=== PATIENT | female | born 1965 | race Caucasian/White ===

== ENCOUNTER → 2016-05-12 | Outpatient (CLI) | payer OTHER | END | disposition home or self-care (01) | LOC: YCFC.O 10:06 | PROVIDERS: ATTEND Nurse Practitioner Family | DX: R25.2 Cramp and spasm (principal); R60.9 Edema, unspecified ==

== ENCOUNTER 2016-05-15 16:24 | Inpatient (IN) | payer OTHER ==
[2016-05-15] MEDS ORDERED: MORPHINE SULFATE INJ 10 MG/ML VIAL IV ONE (16:39)
[2016-05-15] MEDS ORDERED: SODIUM CHLORIDE 0.9% (FLUSH) 10 ML SYG IV PRN (16:39)
[2016-05-15] MEDS ORDERED: methylPREDNISolone SODIUM SUC 125 MG/2 ML VIAL IV ONE (16:43)
[2016-05-15] MEDS ORDERED: MAGNESIUM SULFATE PREMIX 2GM 2 GM in PREMIX BAG 1 BAG IVPB ONE (16:43)
[2016-05-15] MEDS ORDERED: MAGNESIUM SULFATE PREMIX 2GM 50 ML IVPB ONE (16:56)
[2016-05-15] MEDS ORDERED: ALBUTEROL SULFATE 2.5 MG/3 ML VIAL NEB SCH (17:15)
--- NOTE | 2016-05-15 18:13 | ED.PDOC ---
History of Present Illness - General Chief Complaint: Respiratory Problem Stated Complaint: shortness of breath Time Seen by Provider: 05/15/16 16:39 Source: patient, family, RN/MD Exam Limitations: no limitations - History of Present Illness Initial Comments: 50 YO FEMALE WITH COPD PRESENTS TO THE ED COMPLAINING OF SOB SINCE LAST NIGHT. PT WAS SEEN BY HER PMD TODAY AND STARTED ON LEVAQUIN AND PREDNISONE. PT HAD NOT YET TAKEN HER FIRST DOSE OF MEDS UPON PRESENTATION. PT REPORTS PERFORMING 4 DUONEBS SINCE THIS AM. PT FOUND HER SPO2 TO BE IN THE 70S AT HOME AND WAS TOLD BY HER PCP TO COME TO THE ED. PT REQUIRES MY IMMEDIATE ATTENTION UPON ARRIVAL. Timing/Duration: 24 hours Severity: moderate, severe Activities at Onset: none Possible Cause: chronic episodes Improving Factors: immobilization Worsening Factors: movement Associated Symptoms: chest pain, wheezing, other - HEADACHE, BACK PAIN Allergies/Adverse Reactions: Allergies Hydrocodone Adverse Reaction (Verified 10/30/15 11:15) Home Medications: Ambulatory Orders Ipratropium/Albuterol [Duoneb] 3 ml INH TID #30 vial 11/06/15 Losartan Potassium [Cozaar] 100 mg PO DAILY #30 tab 11/06/15 Fluticasone Propionate Hfa [Flovent Hfa] 110 mcg IN BID 05/15/16 Furosemide [Lasix] 80 mg PO DAILY 05/15/16 Potassium Chloride Microencaps [Klor-Con M20] 20 meq PO BID 05/15/16 Spironolactone 25 mg PO DAILY 05/15/16 Review of Systems - Review of Systems Constitutional: Denies: chills, fever EENTM: Denies: ear pain, throat pain Respiratory: States: see HPI, short of breath, wheezing Cardiology: States: see HPI, chest pain. Denies: palpitations Gastrointestinal/Abdominal: Denies: abdominal pain, diarrhea, nausea Genitourinary: Denies: dysuria, frequency Musculoskeletal: Denies: joint pain, joint swelling Skin: Denies: lesions, rash Neurological: States: headache. Denies: numbness, paresthesia Endocrine: States: no symptoms reported Hematologic/Lymphatic: States: no symptoms reported Past Medical History (General) - Patient Medical History Hx Stroke: No Hx of COPD: Yes Hx Congestive Heart Failure: No - patient denies Hx Hypertension: Yes Hx Diabetes: No Hx MRSA: No - Vaccination History Hx Tetanus, Diphtheria Vaccination: No Hx Influenza Vaccination: No Hx Pneumococcal Vaccination: No - Social History Hx Tobacco Use: No Hx Alcohol Use: Yes - Female History Patient : No Family Medical History - Family History Mother Family History: No Known Physical Exam - Physical Exam General Appearance: Alert, Obvious distress, Obese Eyes, Ears, Nose, Throat Exam: normal ENT inspection Neck: non-tender, full range of motion Respiratory: respiratory distress - UNABLE TO SPEAK IN FULL SENTENCES, wheezing Cardiovascular/Chest: no murmur, tachycardia Gastrointestinal/Abdominal: non tender, soft Extremity: pedal edema - 2+ BILATERAL LE Neurologic: alert, normal mood/affect, oriented x 3 Skin Exam: normal color, warm/dry Progress - Progress Progress: 05/15/16 18:27 PT RESTING COMFORTABLY ON RE-EVAL. PT MUCH LESS TACHYPNEIC WITH SIGNIFICANT IMPROVEMENT IN WHEEZING. SPO2 [address] PT ON VENTI MASK AND TITRATE SPO2 ABOVE 90. - EKG/XRAY/CT EKG: Sinus, Tachy - 107BPM, NL INTERVALS, RAD, no ST T wave changes, Unchanged from - 10/31/15 Xray Comments: CXR: NEGATIVE PER RAD Departure - Departure Clinical Impression: COPD (chronic obstructive pulmonary disease) with acute bronchitis, Hypoxemia Rhabdomyolysis Qualifiers: Rhabdomyolysis type: non-traumatic Qualifier Code: (M62.82) Rhabdomyolysis Time of Disposition: 18:37 Disposition: Admit Patient Condition: Fair Departure Forms: ED Discharge - Pt. Copy, Patient Portal Self Enrollment Home Medications: Ambulatory Orders Ipratropium/Albuterol [Duoneb] 3 ml INH TID #30 vial 11/06/15 Losartan Potassium [Cozaar] 100 mg PO DAILY #30 tab 11/06/15 Fluticasone Propionate Hfa [Flovent Hfa] 110 mcg IN BID 05/15/16 Furosemide [Lasix] 80 mg PO DAILY 05/15/16 Potassium Chloride Microencaps [Klor-Con M20] 20 meq PO BID 05/15/16 Spironolactone 25 mg PO DAILY 05/15/16 Critical Care Note - Critical Care Note Total Time (mins): 45 Comments: CRITICAL EVENT: SOB, HYPOXIA, H/O COPD CRITICAL FINDINGS: SPO2 78% ON RA, CK >7000, CK-MB 5.8 CRITICAL ACTIONS: INITIATION OF CONTINUOUS 5MG ALBUTEROL NEB, IV SOLU MEDROL, IV MAGNESIUM SULFATE TOTAL TIME: 30-74MIN. Decision To Admit - Decistion To Admit Decision to Admit Reason: Admit from ER Decision to Admit Date: 05/15/16 - CASE DISCUSSED WITH JORDAN BARKSDALE NP WHO AGREES TO ADMIT Decision to Admit Time: 18:35
[2016-05-15] MEDS ORDERED: levoFLOXacin 750MG IV 750 MG in PREMIX BAG 1 BAG IVPB ONE (18:38)
[2016-05-15] MEDS ORDERED: ALBUTEROL SULFATE 2.5 MG/3 ML VIAL NEB ONE (19:49)
--- NOTE | 2016-05-15 21:30 | HP ---
SUPERVISING PHYSICIAN: DANAE PHAM MD CHIEF COMPLAINT: SHORTNESS OF BREATH HISTORY OF PRESENT ILLNESS: This is a 50 year-old female patient who has had shortness of breath since Thursday. She went to [facility] and saw Christy Hollis, her Nurse Practitioner, for her shortness of breath and she received Levaquin and steroids as well as a rescue inhaler and another inhaler, she was unable to pick those medications up and over the last 24 hours she progressively worsened to the point that she did not get up and go to the bathroom without shortness of breath. Her oxygen saturations at home were in the low 70s. At home, she had done 4 DuoNebs and finally came to the Emergency Room. Her 02 saturations in the Emergency Room were also in the 70s. She received some steroids in the Emergency Room as well as a continuous nebulizer. Her chest x-ray was not done but her lab showed WBC 8.7, hemoglobin 12.5, hematocrit 39, neutrophils 79.1. Chemistries showed an AST of 116, alkaline phosphatase 135, creatinine kinase 7,128. CK 5.8. Blood gas showed a PC02 of 44, PO2 of 61. Her pH was 7.43. After her breathing treatments and the Solu- Medrol as well as the addition of Levaquin, her oxygen saturations came up to the high 80s and I was called for hospital admission. PAST MEDICAL HISTORY: 1. Hypertension. 2. Chronic obstructive pulmonary disease. 3. Hyperlipidemia. 4. Sleep apnea. 5. Insomnia. PAST SURGICAL HISTORY: 1. Tubal ligation. SOCIAL HISTORY: She quit smoking in October of 2015, although she still smokes 1 to 2 cigarettes weekly but she is exposed to a lot of second-hand smoke by a lot of members of her family. She denies any ETOH or illicit drug use. She is and has 2 children. She works here at the hospital. REVIEW OF SYSTEMS: GENERAL: She complains of fatigue, denies fever or chills. HEENT: Denies sinus symptoms, ear pain, vision changes or sore throat. RESPIRATORY: As per the history of present illness. CARDIOVASCULAR: She denies chest pain, palpitations or tachycardia. GI: Denies nausea, vomiting, diarrhea or abdominal pain. GENITOURINARY: Denies dysuria, polyuria or hematuria. MUSCULOSKELETAL: Denies arthralgias or myalgias. She does complain of some mild back pain. NEUROLOGICAL: Denies headaches, seizures or dizziness. EXTREMITIES: She does complain of some mild swelling. PHYSICAL EXAMINATION: VITAL SIGNS: She is afebrile. Heart rate 89, although it was up to 112 in the Emergency Room. Blood pressure 146/85, respiratory rate is now 22, it had gotten up as high as 24 in the Emergency Room. 02 saturation is now 94% on a Venturi mask. It was down as low as 78 in the Emergency Room. GENERAL: This is a 50 yo obese female who is lying in her hospital bed. At this time, she is in no acute distress. HEENT: Normocephalic and atraumatic. Pupils equal and reactive. Oropharynx is clear. Oral mucous membranes are moist. NECK: Supple without masses. No jugular venous distention. CHEST: Diffuse expiratory wheezes bilaterally, somewhat diminished at the bases. CARDIOVASCULAR: Regular rate and rhythm. ABDOMEN: Soft, rounded, non-tender. Bowel sounds are positive. EXTREMITIES: No cyanosis, clubbing, there is a trace of edema to bilateral lower extremities. Her pedal pulses are +1 bilaterally. NEUROLOGIC: She is awake, alert, and oriented x3. LAB AND FILMS: As per history of present illness. ASSESSMENT: 1. Exacerbation of chronic obstructive pulmonary disease in a former smoker. 2. Elevated CPK. 3. Hypertension. 4. Hyperlipidemia. 5. History of chronic tobacco abuse. 6. Sleep apnea. PLAN: We will admit the patient to the hospital. I will order an IV steroids , as well as start her on Levaquin. She also has p.r.n. and scheduled breathing treatments. Will encourage good bronchial hygiene. I will give her some fluids overnight. I am not sure why her CPK is so elevated but her kidney function is within normal limits so I will check her CPK in the morning. I encouraged her to completely stop smoking and she needs to get a plan in place to minimize her exposure to smoke. I will repeat her labs in the morning, chest x-ray in the morning. I have not put her on sliding scale insulin for now. I will see how her steroids affect her blood sugars. Other than that, we will continue present supportive care and followup as medically needed. Dr. Pham is the collaborating physician and available for consultation. [facility][id number] [facility]
[2016-05-15] MEDS ORDERED: ONDANSETRON INJ 4 MG/2 ML VIAL IV PRN (23:06)
--- NOTE | 2016-05-15 23:12 | PCM.CORE ---
Physician DVT/VTE - Prophylaxis Currently: Patient already on anticoagulation therapy - 5 or more Very High Risk Treatments: Early Ambulation *, Sequential Compression Device
[2016-05-15] MEDS ORDERED: ENOXAPARIN SODIUM 40 MG/0.4 ML SYG SUBCU SCH (23:30)
[2016-05-15] MEDS ORDERED: PANTOPRAZOLE SODIUM IV 40 MG VIAL IV SCH (23:30)
[2016-05-15] MEDS ORDERED: SODIUM CHLORIDE 0.9% 10 ML VIAL ONE (23:40)
[2016-05-15] MEDS: SODIUM CHLORIDE 0.9% 1000ML 1,000 ML IVS PRN (23:52)
[2016-05-15] MEDS: IV SET AND CAP CHANGE INJ INJ SCH (23:58)
[2016-05-15] MEDS: methylPREDNISolone SODIUM SUC 125 MG/2 ML VIAL IV SCH (23:58)
[2016-05-16] MEDS ORDERED: ALBUTEROL SULFATE 2.5 MG/3 ML VIAL NEB PRN (01:20)
[2016-05-16] MEDS: IPRATROPIUM/ALBUTEROL 3 ML VIAL NEB SCH ×5 (04:00→20:25)
[2016-05-16] MEDS: IBUPROFEN 400 MG TAB PO PRN ×2 (04:33→12:48)
--- NOTE | 2016-05-16 06:37 | RAD ---
EXAM: Two view chest. INDICATION: Chest pain. COMPARISON: Chest x-ray: None. FINDINGS: Cardiac silhouette: Unremarkable. Alesha: Unremarkable. Lobar consolidation: None. Pleural effusion: None. Pneumothorax: None. Other: None. Bones: Unremarkable. Other: None. IMPRESSION: 1. No acute cardiopulmonary process. Electronically signed by: Phil Johnson MD 05/16/2016 6:34 AM COMPUTER SCIENCE TEACHER
[2016-05-16] MEDS: methylPREDNISolone SODIUM SUC 125 MG/2 ML VIAL IV SCH ×2 (08:43→16:23)
[2016-05-16] MEDS ORDERED: SODIUM CHLORIDE 0.9% 10 ML VIAL IV PRN (09:26)
[2016-05-16] MEDS ORDERED: DEXTROSE 50% 25 GM/50 ML SYG IV PRN (09:45)
[2016-05-16] MEDS ORDERED: GLUCAGON INJ 1 MG VIAL SUBCU PRN (09:45)
[2016-05-16] MEDS: SODIUM CHLORIDE 0.9% 1000ML 1,000 ML IVS PRN (10:06)
[2016-05-16] MEDS: INSULIN LISPRO 100 UNITS/ML PEN SUBCU SCH ×3 (12:20→21:30)
[2016-05-16] MEDS ORDERED: SODIUM BICARBONATE 10MEQ/10ML 75 MEQ in DEXTROSE 5% 1000ML 1,000 ML IV PRN (13:46)
[2016-05-16] MEDS: FUROSEMIDE 40 MG TAB PO SCH (14:42)
[2016-05-16] MEDS: SPIRONOLACTONE 25 MG TAB PO SCH (14:42)
[2016-05-16] MEDS: LOSARTAN POTASSIUM 100 MG TAB PO SCH (14:42)
[2016-05-16] MEDS ORDERED: HYDROcodone 5MG/APAP 325MG 1 EA TAB PO PRN (14:57)
[2016-05-16] MEDS ORDERED: NAPROXEN SODIUM 220 MG TAB PO PRN (17:25)
[2016-05-16] MEDS ORDERED: levoFLOXacin 500MG IV 100 ML IVPB ONE (17:28)
[2016-05-16] MEDS: POTASSIUM CHLORIDE 20 MEQ TAB PO SCH (17:34)
[2016-05-16] MEDS ORDERED: DEXTROSE 5% 1000ML 1,000 ML IVS ONE (17:39)
[2016-05-16] MEDS: levoFLOXacin 500MG IV 500 MG in PREMIX BAG 1 BAG IVPB SCH (17:39)
[2016-05-16] MEDS ORDERED: SODIUM BICARBONATE VIAL 50 MEQ/50 ML VIAL ONE ×2 (17:40→19:51)
--- NOTE | 2016-05-16 18:44 | PN ---
DATE: 05/16/16 SUPERVISING PHYSICIAN: Bryn Carrillo M.D. SUBJECTIVE: The patient is sitting up on the side of her bed. She still complains of shortness of breath but she said that it is much better than it was yesterday. She is still coughing occasionally but she can walk to the bathroom without help. She also complains of some back pain that she says is chronic in nature and Aleve helps her much better than Ibuprofen. Otherwise she denies any chest pain, nausea, vomiting or dizziness. OBJECTIVE: VITAL SIGNS: She is afebrile, heart rate 86, blood pressure 141/72, respiratory rate 22 to 24 breaths per minute, O2 sat has been as low as 88% on 2 liters nasal cannula, but at this moment it is at 94%. RESPIRATORY: Diminished sounds throughout. She does have some expiratory wheezes in the apices, but somewhat diminished at the bases. At times is slightly tachypneic. CARDIAC: Regular rate and rhythm. ABDOMEN: Soft, nondistended, non-tender. Bowel sounds are positive. EXTREMITIES: No cyanosis or clubbing. She does have a trace of pedal edema. NEUROLOGIC: She is awake, alert and oriented times three. LABORATORY: WBCs are 8.1, hemoglobin 12.2, hematocrit 38.4, neutrophils 92.8. Sodium 141, potassium 4.7, chloride 104, carbon dioxide 31, BUN 11, creatinine 0.65, glucose 244. AST is down to 92 from 116 yesterday and alkaline phosphatase is down to 124 from 135 yesterday. CPK was 7,128 yesterday and it is down 5,054 today. All other labs and films have been reviewed via the EMR. ASSESSMENT: 1. Acute exacerbation of chronic obstructive pulmonary disease in a former smoker with failed outpatient therapy. 2. Elevated CPK with concerns for developing Rhabdomyolysis, although her CPK has improved overnight. 3. Tachypnea most likely related to number 1. 4. Hypoxia. 5. Hypertension. 6. Hyperlipidemia currently not being treated. 7. History of chronic tobacco abuse. 8. Sleep apnea. PLAN: We will continue present supportive care. I will change her IV fluids to some Dextrose with bicarbonate. Hopefully her CPK levels will continue to drop. We will need to watch her renal function as we have concerns for Rhabdomyolysis with such a high CPK. I have changed her NSAID to Naprosyn and discontinued her Ibuprofen. I have also added some Tramadol to help with her pain relief. We will continue to encourage good pulmonary toilet and incentive spirometry. I will keep her steroids at the dosing that they are today and I will decrease them in the morning. She still has quite a bit of wheezing as well as low oxygenation. I have added sliding scale insulin for her elevated blood sugars. We will continue to monitor the patient closely and follow as needed. Dr. Carrillo is the collaborating physician available for consultation. #[id number] [facility]
[2016-05-16] MEDS: traMADol HCL 50 MG TAB PO PRN (20:30)
[2016-05-16] MEDS: PANTOPRAZOLE SODIUM IV 40 MG VIAL IV SCH (20:53)
[2016-05-16] MEDS: ENOXAPARIN SODIUM 40 MG/0.4 ML SYG SUBCU SCH (20:54)
[2016-05-17] MEDS: SODIUM CHLORIDE 0.9% (FLUSH) 10 ML SYG IV PRN ×3 (00:01→21:10)
[2016-05-17] MEDS: IPRATROPIUM/ALBUTEROL 3 ML VIAL NEB SCH ×6 (00:04→20:19)
[2016-05-17] MEDS: INSULIN LISPRO 100 UNITS/ML PEN SUBCU SCH ×4 (07:57→21:08)
[2016-05-17] MEDS: POTASSIUM CHLORIDE 20 MEQ TAB PO SCH ×2 (07:58→16:39)
[2016-05-17] MEDS: methylPREDNISolone SODIUM SUC 125 MG/2 ML VIAL IV SCH ×2 (07:58)
[2016-05-17] MEDS: SPIRONOLACTONE 25 MG TAB PO SCH (08:16)
[2016-05-17] MEDS: FUROSEMIDE 40 MG TAB PO SCH (08:16)
[2016-05-17] MEDS: LOSARTAN POTASSIUM 100 MG TAB PO SCH (08:16)
[2016-05-17] MEDS ORDERED: SODIUM BICARBONATE VIAL 50 MEQ/50 ML VIAL ONE (09:18)
[2016-05-17] MEDS ORDERED: DEXTROSE 5% 1000ML 1,000 ML IVS ONE (09:18)
[2016-05-17] MEDS ORDERED: SODIUM BICARBONATE VIAL 75 MEQ in DEXTROSE 5% 1000ML 1,000 ML IV PRN (09:24)
[2016-05-17] MEDS: methylPREDNISolone SODIUM SUC 40 MG/ML VIAL IV SCH ×2 (12:17→17:36)
--- NOTE | 2016-05-17 13:09 | PN ---
DATE: 05/17/16 SUPERVISING PHYSICIAN: Bryn Carrillo M.D. SUBJECTIVE: The patient is lying in her hospital bed. She is resting. She awakens easily. She states she still gets short of breath especially when she gets up to the bathroom, but she says she is improving each day. OBJECTIVE: VITAL SIGNS: She is afebrile, pulse rate 87, blood pressure 126/70, respiratory rate 20, O2 sat 94% on 4 liters nasal cannula. RESPIRATORY: Expiratory wheezes noted throughout all lung rooney. She is moving more air than she did yesterday. There are a few scattered rhonchi throughout also. CARDIAC: Regular rate and rhythm. NEUROLOGIC: She is awake, alert and oriented times three. LABORATORY: WBCs have slightly elevated to 12.3, although she is on corticosteroids. Hemoglobin 11.5, hematocrit 36, neutrophils 90. Sodium 142, potassium 4.5, chloride 101, carbon dioxide 43, BUN 18, creatinine 0.85, glucose 190. CPK 2,362 which is down from 5,054 yesterday. All other labs and films have been reviewed via the EMR. ASSESSMENT: 1. Acute exacerbation of chronic obstructive pulmonary disease in a former smoker with failed outpatient therapy. 2. Elevated CPK with concerns for developing Rhabdomyolysis, although her CPK has improved daily and is now down to 2300. 3. Tachypnea most likely related to number 1. 4. Hypoxia. 5. Hypertension. 6. Hyperlipidemia currently not being treated. 7. History of chronic tobacco abuse. 8. Sleep apnea. PLAN: We will continue present supportive care, including good pulmonary hygiene. I will order an ambulatory study today and tomorrow to determine if she should go home with oxygen. She does not have oxygen at home. I have decreased her IV steroids today and will start her on p.o. steroids in the morning. I have also done routine lab, including a CPK in the morning. After this bag of IV fluids with sodium bicarbonate, they will be discontinued as I believe that the possibility of her developing Rhabdomyolysis is very small at this point, especially given the fact that her renal function has remained within normal limits and her CPK has improved daily. Hopefully she can go home tomorrow with a steroid taper and continued good pulmonary hygiene. We will continue to monitor her closely and followup as needed. Dr. Carrillo is the collaborating physician available for consultation. #[id number] [facility]
[2016-05-17] MEDS ORDERED: levoFLOXacin 500MG IV 100 ML IVPB ONE (16:29)
[2016-05-17] MEDS: levoFLOXacin 500MG IV 500 MG in PREMIX BAG 1 BAG IVPB SCH (17:48)
[2016-05-17] MEDS: ENOXAPARIN SODIUM 40 MG/0.4 ML SYG SUBCU SCH (21:09)
[2016-05-17] MEDS: PANTOPRAZOLE SODIUM IV 40 MG VIAL IV SCH (21:09)
[2016-05-17] MEDS: traMADol HCL 50 MG TAB PO PRN (21:26)
[2016-05-18] MEDS: methylPREDNISolone SODIUM SUC 40 MG/ML VIAL IV SCH (00:11)
[2016-05-18] MEDS: SODIUM CHLORIDE 0.9% (FLUSH) 10 ML SYG IV PRN ×2 (00:12→17:37)
[2016-05-18] MEDS: IPRATROPIUM/ALBUTEROL 3 ML VIAL NEB SCH ×6 (00:12→19:49)
[2016-05-18] MEDS: INSULIN LISPRO 100 UNITS/ML PEN SUBCU SCH ×4 (07:21→21:30)
[2016-05-18] MEDS: POTASSIUM CHLORIDE 20 MEQ TAB PO SCH ×2 (07:22→16:45)
[2016-05-18] MEDS: SPIRONOLACTONE 25 MG TAB PO SCH (08:49)
[2016-05-18] MEDS: FUROSEMIDE 40 MG TAB PO SCH (08:49)
[2016-05-18] MEDS: LOSARTAN POTASSIUM 100 MG TAB PO SCH (08:49)
[2016-05-18] MEDS: predniSONE 20 MG TAB PO SCH (08:49)
[2016-05-18] MEDS ORDERED: MAGNESIUM SULFATE PREMIX 2GM 2 GM in PREMIX BAG 1 BAG IVPB ONE (11:30)
[2016-05-18] MEDS ORDERED: MAGNESIUM SULFATE PREMIX 2GM 50 ML IVPB ONE (11:38)
--- NOTE | 2016-05-18 11:58 | RAD ---
PROCEDURE: Chest,2 Views CLINICAL HISTORY: COPD INDICATION: Same as above COMPARISON: 05/16/2016 TECHNIQUE: PA and and lateral chest radiographs were obtained. FINDINGS: There is suggestion of probable left-sided pleural thickening, unchanged There are no discrete airspace infiltrates, pneumothoraces or pleural effusions. The pulmonary vascularity is normal The cardiomediastinal silhouette is stable IMPRESSION: There is no acute pleural-parenchymal process seen in the imaged lung rooney. Place of interpretation: Teleradiology. Electronically signed by: Jaleel Briseno MD 05/18/2016 11:57 AM CDT
--- NOTE | 2016-05-18 14:30 | PN ---
DATE: 05/18/16 SUPERVISING PHYSICIAN: Bryn Carrillo M.D. SUBJECTIVE: The patient is sitting on the edge of the bed. She appears to be a little distressed from just having previously done an ambulatory study which indicated she desatted to 86% on room air during ambulation with significant shortness of breath. The plan was to discharge the patient home today, however the patient appears to be again in mild distress with some significant respirations and obvious difficulty with inspiratory effort. She is able to speak in full sentences but gets significantly dyspneic with any exertional effort. OBJECTIVE: VITAL SIGNS: T max 98.4, pulse 81, blood pressure 118/77, respirations 20, O2 sat showing 93% on nasal cannula at 3 liters at rest with O2 saturations during ambulation studies on room air at 92% desatting to 86%. I 's and O's show a negative balance of 1047 with 3053 in, 4100 out. Weight is 114.3 kg. GENERAL: The patient appears to be in mild distress after having finished ambulatory study. Unable to fully lie down requiring her to sit on the edge of the bed to recover. Still continues with some mild expiratory wheezing throughout and a notable decrease in aeration of all lung rooney. HEART: Regular rate and rhythm. EXTREMITIES: No clubbing, cyanosis or edema. NEUROLOGIC: She is alert and oriented times three. LABORATORY: White count has now normalized at 10.6, hemoglobin 11.5, hematocrit 36.1, platelet count 282,000. Differential continues to show a left shift. Chemistries show normal electrolytes with potassium 4.5, BUN 22, creatinine 0.79, glucoses have been 167 to 250. CPK is now down to 654 from previous on 05/15/16 at 7,128. MICROBIOLOGY: There are no microbiology specimens for review. RADIOLOGY: A chest x-ray 2 view today per radiology interpretation shows no acute pleural parenchymal processes seen in the imaged lung rooney. ASSESSMENT: 1. Acute exacerbation of chronic obstructive pulmonary disease in a former smoker having failed outpatient therapy with a component of reactive airway disease, unknown triggers, requiring corticosteroids and aggressive pulmonary hygiene. 2. Elevated CPK with initially concerns for Rhabdomyolysis likely secondary to the patient being immobile for a length of time due to her shortness of breath with CPK now improved compared to admission of 2300 down to 654. 3. Tachypnea related to number 1 with minimum improvement today. 4. Hypoxia secondary to number 1. 5. Hypertension, controlled. 6. Hyperlipidemia currently not being treated. 7. History of chronic tobacco abuse. 8. Sleep apnea. PLAN: The patient today did show some mild deterioration with some respiratory distress after ambulatory studies. Discussed with the patient utilizing BiPAP today p.r.n. to assist with some ventilatory effort. Will continue with steroids p.o., prednisone and aggressive pulmonary hygiene. Anticipation of discharge tomorrow after continued treatment. Was hoped to be discharged today , however set back with her showing some significant respiratory distress at time of exam. The patient certainly would benefit from continued pulmonary hygiene and p.r.n. BiPAP. The patient likely need O2 at home. Will plan to do a further ambulatory study tomorrow to see if she has improved on room air. We discontinued her IV fluids that included sodium bicarbonate as her CPK is normalizing indicating less likely Rhabdomyolysis. Again, anticipate discharge tomorrow. She will need close clinical followup at [facility] as well as likely home O2, and she will need to go on a steroid tapering dose and continue antibiotics to completion to include Levaquin as well as continued pulmonary hygiene with Albuterol treatments. Until then, will continue to monitor the patient closely and treat appropriately. Dr. Carrillo is the collaborating physician available for consultation. #[id number] [facility]
[2016-05-18] MEDS ORDERED: levoFLOXacin 500MG IV 100 ML IVPB ONE (16:13)
[2016-05-18] MEDS: traMADol HCL 50 MG TAB PO PRN ×2 (16:46→23:08)
[2016-05-18] MEDS: levoFLOXacin 500MG IV 500 MG in PREMIX BAG 1 BAG IVPB SCH (17:36)
[2016-05-18] MEDS: PANTOPRAZOLE SODIUM IV 40 MG VIAL IV SCH (20:41)
[2016-05-18] MEDS: SODIUM CHLORIDE 0.9% (FLUSH) 10 ML SYG IV SCH (20:42)
[2016-05-18] MEDS: ENOXAPARIN SODIUM 40 MG/0.4 ML SYG SUBCU SCH (20:43)
[2016-05-19] MEDS: IV SET AND CAP CHANGE INJ INJ SCH
[2016-05-19] MEDS: IPRATROPIUM/ALBUTEROL 3 ML VIAL NEB SCH ×6 (01:08→21:26)
[2016-05-19] MEDS: INSULIN LISPRO 100 UNITS/ML PEN SUBCU SCH ×4 (07:24→21:27)
[2016-05-19] MEDS: POTASSIUM CHLORIDE 20 MEQ TAB PO SCH ×2 (07:25→16:43)
[2016-05-19] MEDS: SPIRONOLACTONE 25 MG TAB PO SCH (08:55)
[2016-05-19] MEDS: LOSARTAN POTASSIUM 100 MG TAB PO SCH (08:56)
[2016-05-19] MEDS: SODIUM CHLORIDE 0.9% (FLUSH) 10 ML SYG IV SCH ×2 (08:56→20:35)
[2016-05-19] MEDS: predniSONE 20 MG TAB PO SCH (08:56)
[2016-05-19] MEDS: FUROSEMIDE 40 MG TAB PO SCH (08:56)
[2016-05-19] MEDS: NYSTATIN SUSPENSION 5 ML UD MT SCH ×4 (10:02→21:28)
[2016-05-19] MEDS: methylPREDNISolone SODIUM SUC 125 MG/2 ML VIAL IV SCH ×3 (10:02→21:32)
--- NOTE | 2016-05-19 10:26 | RAD ---
Procedure: XR CHEST 2 VIEWS Exam date: 05/19/2016 9:46 AM CDT Ordering Provider: Bharath Cunha NP Clinical Indication: COPD exacerbation Comparison: May 18, 2016 Findings: Cardiomediastinal silhouette is within normal limits. The lungs are clear. No pleural effusion or pneumothorax. Osseous structures are nonacute. No evidence of active tuberculosis. Impression: No acute cardiopulmonary process. Stable chest. Electronically signed by: Grabiel Ramsay MD 05/19/2016 10:25 AM CDT
[2016-05-19] MEDS ORDERED: levoFLOXacin 500MG IV 100 ML IVPB ONE (12:55)
--- NOTE | 2016-05-19 15:09 | PN ---
SUPERVISING PHYSICIAN: Bryn Carrillo MD DATE: 05/19/16 SUBJECTIVE: The patient has been on the BiPAP through the night and said she rested well, but woke up this morning feeling worse than she has since she has been admitted with significant shortness of breath again. As noted, we did decrease her steroid regimen, which could be resulting in her acute setback. She does remain afebrile. The patient also complains of a sore throat that started this morning. OBJECTIVE: VITAL SIGNS: T-max 97.2. Pulse 87. Blood pressure 108/66. Respirations 20. 96% O2 saturation on nasal cannula at rest at 2 liters. I&Os show negative balance of 750 with 2140 in, 2900 out. GENERAL: The patient again appears to be in some mild distress off BiPAP. She continues with expiratory wheezing heard more prominently in the expiratory phase. HEENT: Oropharynx today is mildly erythematous with some whitish plaques to the tongue area. CHEST: Lung sounds are diminished towards the bases with expiratory wheezing throughout the lung rooney and some notable rhonchi heard in the bases, more prominent on the left than the right. HEART: Regular rate and rhythm. EXTREMITIES: No cyanosis, clubbing or edema. NEUROLOGIC: Alert and oriented times three. LABORATORY: White count remains within normal limits at 8.6, hemoglobin 12.0, hematocrit 37.8, platelet count 256,000, differential without a left shift. Chemistries show a normal potassium at 3.7, BUN 25, creatinine 0.76, carbon dioxide 36 which is increased from admission. CPK is down to 180, glucoses have been 81 to 250. MICROBIOLOGY: Group A Streptococcus culture is pending. RADIOLOGY: Repeat chest x-ray shows to be stable per radiology interpret with no acute cardiopulmonary processes noted. ASSESSMENT: 1. Acute exacerbation of chronic obstructive pulmonary disease in a former smoker having failed outpatient therapy with a component of reactive airway disease, currently unknown triggers, requiring increasing corticosteroids and continued aggressive pulmonary hygiene along with noninvasive ventilatory support with BiPAP p.r.n. 2. Elevated CPK with initially concerns for rhabdomyolysis, likely secondary to the patient being immobile for a length of time due to her severe shortness of breath with CPK now returning to normal limits. 3. Hypertension, controlled. 4. Hyperlipidemia currently not being treated. 5. History of chronic tobacco abuse. 6. Sleep apnea. PLAN: The patient today has shown continued decrease from previous days, although she did have some good sleep through the night with the BiPAP. This morning, she awoke wheezing, feeling tight. This possibly could be related to decrease in her steroids in the last 24 hours. Therefore, we will plan to increase the steroids back to Solu-Medrol IV with 80 mg q.6h. for four doses to reevaluate in the morning and monitor closely. She will continue with BiPAP as needed and aggressive pulmonary hygiene along with breathing treatments. We will continue to monitor ambulatory studies with anticipation of needing oxygen at time of discharge. She remains saline locked and has had a good urinary output. Once the patient is stabilized clinically and able to be discharged, she will need close clinical followup with [facility] as well as arrangements for O2 at home along with a slow tapered dose of steroids and ultimate completion of antibiotics to include Levaquin for 7 to 10 days. Until then, we will continue to monitor the patient closely and treat appropriately. Dr. Carrillo is the collaborating physician and available for consultation. #[id number] [facility]
[2016-05-19] MEDS: PANTOPRAZOLE SODIUM TAB 40 MG PO SCH (16:43)
[2016-05-19] MEDS: levoFLOXacin 500MG IV 500 MG in PREMIX BAG 1 BAG IVPB SCH (18:19)
[2016-05-19] MEDS: ENOXAPARIN SODIUM 40 MG/0.4 ML SYG SUBCU SCH (20:34)
[2016-05-19] MEDS: SODIUM CHLORIDE 0.9% (FLUSH) 10 ML SYG IV PRN (21:31)
[2016-05-20] MEDS: IPRATROPIUM/ALBUTEROL 3 ML VIAL NEB SCH ×3 (00:37→08:45)
[2016-05-20] MEDS: methylPREDNISolone SODIUM SUC 125 MG/2 ML VIAL IV SCH (04:08)
[2016-05-20] MEDS: SODIUM CHLORIDE 0.9% (FLUSH) 10 ML SYG IV PRN (04:09)
[2016-05-20] MEDS: PANTOPRAZOLE SODIUM TAB 40 MG PO SCH (06:21)
[2016-05-20] MEDS: INSULIN LISPRO 100 UNITS/ML PEN SUBCU SCH ×3 (07:43→17:17)
[2016-05-20] MEDS: POTASSIUM CHLORIDE 20 MEQ TAB PO SCH ×2 (07:44→17:17)
[2016-05-20] MEDS: NYSTATIN SUSPENSION 5 ML UD MT SCH ×3 (09:34→17:17)
[2016-05-20] MEDS: SPIRONOLACTONE 25 MG TAB PO SCH (09:34)
[2016-05-20] MEDS: FUROSEMIDE 40 MG TAB PO SCH (09:34)
[2016-05-20] MEDS: LOSARTAN POTASSIUM 100 MG TAB PO SCH (09:34)
[2016-05-20] MEDS: SODIUM CHLORIDE 0.9% (FLUSH) 10 ML SYG IV SCH (09:34)
[2016-05-20 10:08] VITALS: TEMP 98
[2016-05-20] MEDS ORDERED: BIFIDOBACTERIUM INFANTIS 4 MG CAP PO SCH (11:00)
[2016-05-20 14:23] VITALS: BP 125/81; O2SAT 92
--- NOTE | 2016-05-21 11:22 | DS ---
SUPERVISING PHYSICIAN: Bryn Carrillo MD DISCHARGE DIAGNOSIS: 1. Acute exacerbation of chronic obstructive pulmonary disease in a former smoker having failed to respond to outpatient therapy with a component of reactive airway disease, currently unknown triggers, requiring aggressive and increasing corticosteroid therapy with continued aggressive pulmonary hygiene along with noninvasive ventilatory support with BiPAP p.r.n., showing improvement after initiation of treatment. 2. Elevated CPK with concerns for rhabdomyolysis, likely secondary the patient being immobile for a length of time due to her severe shortness of breath with CPK returning to normal limits prior to discharge after treatment with alkalinization and IV fluids. 3. Thrush, secondary to antibiotic therapy. 4. Hypertension, controlled. 5. Hyperlipidemia currently not being treated. 6. History of chronic tobacco abuse, encouraged to stop smoking. 7. Sleep apnea. HISTORY OF PRESENT ILLNESS: Ms. Scherer is a 50-year-old, female patient who initially presented to the Emergency Department on 05/15/16 complaining of shortness of breath that had started the Thursday prior to admission. She went to [facility] and saw Amita Hollis, her nurse practitioner, for severe shortness of breath and received Levaquin, steroids, as well as a rescue inhaler and other inhalers, but was unable to pick the medications up in the 24 hours to her admission and she progressively worsened to the point where she could not get up and go the bathroom without severe shortness of breath. At home, her oxygen saturations were in the low 70s and she had been doing DuoNebs often and finally ended up coming to the Emergency Room due to the severe increasing symptoms. Her O2 saturations in the Emergency Department were showing low 70s. In the Emergency Room, she received steroids as well as continue nebulizer. Blood gas completed showed PCO2 44, PO2 61, pH 7.43. White count 8.7, hemoglobin 12.5, hematocrit 39.9. After breathing treatments were initiated and Solu-Medrol with Levaquin, her oxygen saturations increased to the high 80s and she was admitted to the Medical /Surgical Floor for further treatment and evaluation. LABORATORY: Initial white count was 8.7 at time of admission. It maximized at 12.3, which was on 05/17/16. Prior to discharge, she normalized to 8.6. Hemoglobin and hematocrit stayed stable and at time were hemoglobin 12.0, hematocrit 37.8. Platelet count 256,000. She did show a left shift on admission, but prior to discharge had normalized. Coagulation studies showed PT 13, INR 1.15, PT-T 35.9. Blood gases in the Emergency Department showed pH 7.43 with bicarb 28.3, PO2 61, PCO2 64, saturation 92% on 2 liter nasal cannula with oxyhemoglobin 87.5% and carboxyhemoglobin 5.0. Chemistries initially on admission showed normal electrolytes with liver functions initially showing elevated AST at 116 as well as alkaline phosphatase at 135. CPK 7,128 with troponin less than 0.02. After initiation of treatment, she clinically improved. Her CPK slowly normalized and at time of discharge was near normal at 180. Electrolytes on date of discharge showed normal electrolytes with potassium 4.2, BUN 25, creatinine 0.86. Glucoses were fairly elevated secondary to the corticosteroid therapy with a maximum of 275. Urinalysis was within normal limits. Toxicology screen showed urine positive for opioids, negative for other substances tested. MICROBIOLOGY: No sputum cultures were submitted. She had a group A Streptococcus culture that showed no group A strep isolated. RADIOLOGY: Chest x-ray initially on admission per radiology interpretation showed no acute cardiopulmonary processes. Through the admission process after multiple x-rays, her chest x-ray was stable with no infiltrations or consolidations noted per radiology interpretation. HOSPITAL COURSE: Ms. Scherer was admitted as noted in history of present illness for severe exacerbation of chronic obstructive pulmonary disease with hypoxia. She was started on treatment that included antibiotics with Levaquin, Solu- Medrol, and aggressive pulmonary hygiene with DuoNeb breathing treatments. She did progressively improve clinically, however, on initial date of discharge which was to be 05/18/16, the patient was found to have clinically decompensated and was requiring assistance with noninvasive ventilatory through BiPAP. It was noted that she had been on steroids, however, those had been tapered off in anticipation of the patient going home and started on prednisone the previous day. Given that she had an increasing work to breathe and a clinical decline, she was continued with admission and re-initiated on Solu- Medrol. This was continued continued until date of discharge and the patient showed good improvement. On the morning of discharge, she was clinically well enough to be discharged to continue with outpatient therapy. She did have ambulatory studies completed which showed low saturations and on date of discharge, final ambulatory study indicated that she was satting on room air 91 % prior to ambulatory efforts and de-satted down to 88% with 6 minute exertional effort. She was only able to walk 550 feet and became quite short of breath with heart rate going up into the 130s. She was able to recover to 91 % after four minutes with 1 liter nasal cannula. Given that the patient had shown improvement and was no longer requiring BiPAP, but was requiring home oxygen, home oxygen as arranged and she was discharged to have close clinical followup with her primary care providers at [facility]. PLAN: Ms. Scherer was discharged on 05/20/16 with instructions to have close clinical followup the following week with her primary care provider at [facility]. She has been seeing Amita Hollis, nurse practitioner. She will need a referral to pulmonology services and that can be arranged through [facility]. She was instructed to start new medications and to take previous home medications as previously instructed. She was to oxygen as prescribed until she could be seen in followup. She was also scheduled for a sleep study this coming Thursday after discharge to further assess need to BiPAP or CPAP at home. She was encouraged to increase her activity as tolerated utilizing oxygen and was encouraged to stop smoking and not to smoke ever with use of oxygen. She was instructed to return to the hospital should she have no improvement in her condition or any worsening. At time of discharge, new prescriptions included: 1. Align 4 mg daily, #30. 2. Levaquin 500 mg daily, #9. 3. Prednisone tapering dose after a 5 day 40 mg regimen with slow taper per instructions. 4. Protonix 40 mg daily, #30. 5. The patient will be continued on Nystatin swish and swallow for thrush. Ms. Scherer was discharged in stable condition #[id number] [facility]
== END 2016-05-20 18:00 | disposition home or self-care (01) | DRG 191 ==
LOC: ER 16:24 → MS 21:28 → OBSVTOIN 21:28
PROVIDERS: ADMIT Nurse Practitioner Acute Care; ATTEND Nurse Practitioner Family
DX: J44.1 Chronic obstructive pulmonary disease with (acute) exacerbation (principal); M62.82 Rhabdomyolysis; B37.0 Candidal stomatitis; Z68.42 Body mass index [BMI] 45.0-49.9, adult; J45.909 Unspecified asthma, uncomplicated; T36.95XA Adverse effect of unspecified systemic antibiotic, initial encounter; I10 Essential (primary) hypertension; E78.5 Hyperlipidemia, unspecified; G47.30 Sleep apnea, unspecified; R09.02 Hypoxemia; G47.00 Insomnia, unspecified; E66.9 Obesity, unspecified; G89.29 Other chronic pain; M54.9 Dorsalgia, unspecified; Y92.230 Patient room in hospital as the place of occurrence of the external cause; Z87.891 Personal history of nicotine dependence; Z88.5 Allergy status to narcotic agent; Z79.899 Other long term (current) drug therapy

== ENCOUNTER → 2016-05-15 | Outpatient (CLI) | payer OTHER ==
--- NOTE | 2016-05-15 11:04 | RAD ---
EXAM DESCRIPTION: Chest,2 Views CLINICAL HISTORY: COPD COMPARISON: November 04, 2015 FINDINGS: Two-view chest x-ray shows cardiomediastinal silhouette and pulmonary vasculature to be within normal limits. The lungs are mildly hyperinflated without acute appearing of the trachea or consolidation. Costophrenic angles are sharp. Mild spondylitic changes of the spine are seen. IMPRESSION: No radiographic evidence of acute cardiopulmonary disease. Electronically signed by: Miguel Coronel MD 05/15/2016 11:03 AM HEALTH CARE LEGAL ASSISTANT
== END | disposition home or self-care (01) ==
LOC: YCFC.O 09:10
PROVIDERS: ATTEND Nurse Practitioner Family
DX: J44.1 Chronic obstructive pulmonary disease with (acute) exacerbation (principal)

== ENCOUNTER → 2016-05-26 | Outpatient (CLI) | payer OTHER | LOC: SL 20:30 | PROVIDERS: ATTEND Nurse Practitioner Family | DX: G47.33 Obstructive sleep apnea (adult) (pediatric) (principal) ==

== ENCOUNTER → 2016-05-27 | Outpatient (CLI) | payer OTHER | END | disposition home or self-care (01) | LOC: YCFC.O 09:49 | PROVIDERS: ATTEND Nurse Practitioner Family | DX: I10 Essential (primary) hypertension (principal); Z13.220 Encounter for screening for lipoid disorders; Z13.29 Encounter for screening for other suspected endocrine disorder; J44.9 Chronic obstructive pulmonary disease, unspecified ==

== ENCOUNTER → 2016-05-28 | Outpatient (CLI) | payer OTHER ==
[~2016-05-28] MED LIST: ALBUTEROL SULFATE 2.5 MG/3 ML VIAL NEB ONE
== END | disposition home or self-care (01) ==
LOC: RESP 10:13
PROVIDERS: ATTEND Nurse Practitioner Family
DX: J44.9 Chronic obstructive pulmonary disease, unspecified (principal)

== ENCOUNTER → 2016-06-25 | Outpatient (CLI) | payer OTHER | END | disposition home or self-care (01) | LOC: LAB.O 10:42 | PROVIDERS: ATTEND Nurse Practitioner Family | DX: R73.01 Impaired fasting glucose (principal) ==

== ENCOUNTER → 2017-05-26 | Outpatient (CLI) | payer OTHER ==
--- NOTE | 2017-05-27 10:56 | RAD ---
EXAM DESCRIPTION: Chest,2 Views CLINICAL HISTORY: UNSPECIFIED COMBINED SYSTOLIC AND DIASTOLIC HEART FAILURE COMPARISON: Previous study May 19, 2016 TECHNIQUE: PA/lateral FINDINGS: There is no acute appearing cardiac or pulmonary abnormality. Heart size is normal with normal pulmonary vascularity. No pleural effusion or pneumothorax. Linear densities in both lung bases are seen consistent with discoid atelectasis more likely than pneumonia. Mid and upper lung zones are clear. Lateral view shows intact sternum and T-spine. IMPRESSION: No acute process is identified in the chest. Electronically signed by: Suleiman Goodman MD 05/27/2017 10:54 AM CDT
== END ==
LOC: LAB.O 13:07
PROVIDERS: ATTEND Nurse Practitioner Family
DX: I50.40 Unspecified combined systolic (congestive) and diastolic (congestive) heart failure (principal)

== ENCOUNTER → 2017-05-26 | Outpatient (CLI) | payer SELFPAY | LOC: RESP 12:56 | PROVIDERS: ATTEND Nurse Practitioner Family | DX: I50.40 Unspecified combined systolic (congestive) and diastolic (congestive) heart failure (principal) ==

== ENCOUNTER 2017-11-23 10:28 | Inpatient (IN) | payer SELFPAY ==
[2017-11-23] MEDS ORDERED: IPRATROPIUM/ALBUTEROL 3 ML VIAL NEB ONE ×2 (10:36→10:52)
[2017-11-23] MEDS ORDERED: FUROSEMIDE INJ 100 MG/10 ML VIAL IV ONE (10:50)
[2017-11-23] MEDS ORDERED: IPRATROPIUM/ALBUTEROL 3 ML VIAL INH ONE (10:50)
[2017-11-23] MEDS ORDERED: MAGNESIUM SULFATE PREMIX 2GM 2 GM in PREMIX BAG 1 BAG IVPB ONE (10:52)
[2017-11-23] MEDS ORDERED: methylPREDNISolone SODIUM SUC 125 MG/2 ML VIAL IV ONE (10:52)
[2017-11-23] MEDS ORDERED: MAGNESIUM SULFATE PREMIX 2GM 50 ML IVPB ONE (10:55)
--- NOTE | 2017-11-23 11:30 | RAD ---
Study: Single Frontal View of the Chest. Indication:sob Comparison: May 26, 2017. Impression: Cardiomegaly with mild central pulmonary vascular congestion. Evaluation of the lung bases is difficult due to body habitus. Mild basilar atelectasis suspected. No pleural effusion or pneumothorax. No acute osseous abnormality. Electronically signed by: Brett Willingham MD 11/23/2017 11:29 AM CDT
--- NOTE | 2017-11-23 11:38 | ED.PDOC ---
History of Present Illness - General Chief Complaint: Respiratory Problem Stated Complaint: SOB Time Seen by Provider: 11/23/17 10:50 Source: patient Exam Limitations: no limitations - History of Present Illness Initial Comments: PT PRESENTS TO THE ED WITH 1 WEEK HISTORY OF SOB. PT IS CURRENTLY ON ABX AND STEROID PRESCRIBED BY PCP FOR ASTHMA/BRONCHITIS. PT REPORTS NO IMPROVEMENT IN SYMPTOMS WITH TREATMENT. PT DENIES H/O CHF AND STATES THAT SHE NO LONGER TAKES MEDICATION FOR HTN. PT REQUIRED MY IMMEDIATE ATTENTION. PT HPI AND ROS LIMITED DUE TO PT ACUITY. Timing/Duration: 1 week, getting worse Severity: moderate Possible Cause: chronic episodes Improving Factors: rest Worsening Factors: movement Associated Symptoms: cough, wheezing Allergies/Adverse Reactions: Allergies Hydrocodone Adverse Reaction (Verified 10/30/15 11:15) Home Medications: Ambulatory Orders Ipratropium/Albuterol [Duoneb] 3 ml INH TID #30 vial 11/06/15 Furosemide [Lasix] 40 mg PO DAILY 05/15/16 Potassium Chloride Microencaps [Klor-Con M20] 20 meq PO BID 05/15/16 predniSONE [Prednisone] See Taper PO DAILY #12 tab 05/26/16 Albuterol Sulfate [Proair Hfa] 2 puff INH Q6H PRN 11/23/17 Review of Systems - Review of Systems Constitutional: Denies: chills, fever Respiratory: States: see HPI, cough, short of breath Cardiology: Denies: chest pain, palpitations Gastrointestinal/Abdominal: Denies: nausea, vomiting Genitourinary: Denies: dysuria, frequency Musculoskeletal: Denies: joint pain, joint swelling Skin: Denies: dryness, lesions Neurological: Denies: headache, numbness Past Medical History (General) - Patient Medical History Hx Seizures: No Hx Stroke: No Hx Asthma: Yes Hx of COPD: Yes Hx Congestive Heart Failure: No - patient denies Hx Pacemaker: No Hx Hypertension: Yes Hx Diabetes: No Hx Cancer: No Hx Hepatitis C: No Hx MRSA: No - Vaccination History Hx Tetanus, Diphtheria Vaccination: No Hx Influenza Vaccination: No Hx Pneumococcal Vaccination: No Immunizations Up to Date: No - Social History Hx Tobacco Use: No Hx Chewing Tobacco Use: No Hx Alcohol Use: No Hx Substance Use: No Hx Substance Use Treatment: No Hx Depression: No Feels Threatened In Home Enviroment: No Feels Threatened In a Relationship: No Hx Physical Abuse: No Hx Emotional Abuse: No Hx Suspected Abuse: No - Activities of Daily Living Hospice Agency (if applicable):: None - Female History Patient is a Female of Child Bearing Age (10 -59 yrs old): No Patient : No Family Medical History - Family History Mother Family History: No Known Physical Exam - Physical Exam General Appearance: Alert, Obvious distress, Obese Eyes, Ears, Nose, Throat Exam: normal ENT inspection Neck: normal inspection Respiratory: respiratory distress, accessory muscle use, rhonchi, wheezing Cardiovascular/Chest: regular rate, rhythm Progress - Progress Progress: 11/23/17 11:46 PT HAS ONLY MINIMAL IMPROVEMENT IN WHEEZING AFTER DUONEB X2, IV SOLU MEDROL, AND IV MAGNESIUM. NIPPV ORDERED. 11/23/17 13:06 PT DOING WELL ON NIPPV, ABG SIGNIFICANTLY IMPROVED. LABS AND DIAGNOSTICS DISCUSSED. - Results/Orders Results/Orders: 11/23/17 10:50 IV Care:Saline Lock per Protoc QSHIFT Telemetry .ONCE CARDIAC ENZYME GROUP Stat Sodium Chloride 0.9% (Flush) [Saline Flush Syringe] 10 ml IV PRN PRN 11/23/17 11:00 EKG STAT 11/23/17 12:58 Sputum PRN 11/24/17 09:00 BiPAP Daily Pulse Ox Daily Laboratory Results - last 24 hr 11/23/17 11/23/17 11/23/17 10:50 10:50 10:50 WBC 11.7 H RBC 5.02 Hgb 13.8 Hct 43.9 MCV 87.5 MCH 27.5 MCHC 31.5 L RDW 18.2 H Plt Count 279 MPV 7.6 Absolute Neuts (auto) 10.50 H Absolute Lymphs (auto) 0.70 L Absolute Monos (auto) 0.50 Absolute Eos (auto) 0.00 Absolute Basos (auto) 0.00 Neutrophils % 89.1 H Lymphocytes % 6.0 L Monocytes % 4.6 Eosinophils % 0.1 L Basophils % 0.2 D-Dimer, Quantitative pCO2 pO2 HCO3 ABG pH ABG O2 Saturation ABG Base Excess ABG Deoxyhemoglobin Oxyhemoglobin % Carboxyhemoglobin % Methemoglobin % Sat Calc Total Hemoglobin Sodium 141 Potassium 4.7 Chloride 94 L Carbon Dioxide 40 H Anion Gap 11.7 L BUN 24 H Creatinine 0.71 BUN/Creatinine Ratio 33.8 H Random Glucose 261 H Serum Osmolality 294.3 Calcium 8.8 Total Bilirubin 0.4 AST 51 H ALT 83 H Alkaline Phosphatase 121 CK-MB (CK-2) 4.0 Troponin I 0.03 B-Natriuretic Peptide 480.0 H* Serum Total Protein 8.1 Albumin 4.0 Globulin 4.1 H Albumin/Globulin Ratio 1.0 L 11/23/17 11/23/17 11/23/17 10:51 11:04 12:39 WBC RBC Hgb Hct MCV MCH MCHC RDW Plt Count MPV Absolute Neuts (auto) Absolute Lymphs (auto) Absolute Monos (auto) Absolute Eos (auto) Absolute Basos (auto) Neutrophils % Lymphocytes % Monocytes % Eosinophils % Basophils % D-Dimer, Quantitative 0.72 H* pCO2 90 H* 68 H pO2 71 L 122 H* HCO3 38.5 38.8 ABG pH 7.250 L* 7.370 ABG O2 Saturation 94.2 L 96.8 ABG Base Excess 9.0 11.0 ABG Deoxyhemoglobin 5.6 H 3.2 Oxyhemoglobin % 91.4 L 94.9 Carboxyhemoglobin % 1.9 H 1.7 H Methemoglobin % Sat 1.1 0.2 Calc Total Hemoglobin 10.7 L 13.4 Sodium Potassium Chloride Carbon Dioxide Anion Gap BUN Creatinine BUN/Creatinine Ratio Random Glucose Serum Osmolality Calcium Total Bilirubin AST ALT Alkaline Phosphatase CK-MB (CK-2) Troponin I B-Natriuretic Peptide Serum Total Protein Albumin Globulin Albumin/Globulin Ratio - EKG/XRAY/CT EKG: Sinus - @74BPM, NL INTERVALS, RAD, POOR R WAVE PROGESSION, nonspecific ST T wave Chg, Unchanged from - MAY 2017 XRAY: chest - CARDIOMEGALY WITH MILD PULMONARY EDEMA CT Ordered: No CT Interpretation Call Back: No Departure - Departure Clinical Impression: Acute exacerbation of COPD with asthma, Acute CHF (congestive heart failure), Acute respiratory failure with hypercapnia, Uncontrolled hypertension Time of Disposition: 13:09 Disposition: Admit Patient Condition: Fair Departure Forms: ED Discharge - Pt. Copy, Patient Portal Self Enrollment Referrals: ANDRÉS AMBROSE [facility]UC[facility] [Primary Care Provider] - 1-2 Weeks Home Medications: Ambulatory Orders Ipratropium/Albuterol [Duoneb] 3 ml INH TID #30 vial 11/06/15 Furosemide [Lasix] 40 mg PO DAILY 05/15/16 Potassium Chloride Microencaps [Klor-Con M20] 20 meq PO BID 05/15/16 predniSONE [Prednisone] See Taper PO DAILY #12 tab 05/26/16 Albuterol Sulfate [Proair Hfa] 2 puff INH Q6H PRN 11/23/17 Critical Care Note - Critical Care Note Total Time (mins): 45 Comments: CRITICAL EVENT: UNCONTROLLED HTN, ACUTE CHF EXACERBATION, ACUTE COPD EXACERBATION, ACUTE RESPIRATORY FAILURE CRITICAL FINDINGS: CARDIOMEGALY AND CHF ON CXR, PH 7.25, PCO2 90, PO2 70, BNP 420 CRITICAL ACTIONS: INITIATION OF NIPPV, IV LASIX, IV SOLU MEDROL, IV MAGNESIUM SULFATE, DUONEB X 3, CONSULTATION FOR ADMISSION. Decision To Admit - Decistion To Admit Decision to Admit Reason: Admit from ER Decision to Admit Date: 11/23/17 Decision to Admit Time: 13:10 - CASE DISCUSSED WITH WHIT HARDIN NP WHO AGREES TO ADMIT
[2017-11-23] MEDS: SODIUM CHLORIDE 0.9% (FLUSH) 10 ML SYG IV PRN ×3 (13:02→23:58)
--- NOTE | 2017-11-23 13:24 | HP ---
SUPERVISING PHYSICIAN: Alexander Felder M.D. CHIEF COMPLAINT: Severe shortness of breath. HISTORY OF PRESENT ILLNESS: Ms. Scherer is a 52 year-old female patient that presented to the Emergency Room today with a 7 day history of worsening shortness of breath. She reports that she started having shortness of breath this past week on Thursday and then on Thursday went to see her primary care provider who is Huey Cazares, nurse practitioner. At that time she was started on Cephalexin and Albuterol treatments. She got a little bit better on but Thursday followed-up and was no better. She went through the weekend and progressively worsened to the point where she was having a significant amount of distress. Initially in the Emergency Department today her vital signs showed that she had a heart rate of 105, blood pressure 163/137 , respirations 22 to 30 with initial saturations of 40 to 60% on room air. She was given breathing treatments, put on BiPAP after ABGs showed that she was having a significant amount of respiratory acidosis. Laboratory studies did show she had a white count of 11,700 with a left shift. Coagulation studies showed an elevated D-dimer at 0.72 and her initial blood gases showed a pH of 7.25 with pCO2 of 90, pO2 of 71, bicarb 38, satting 94% initially on nasal cannula. She was given several breathing treatments, IV Solu-Medrol and magnesium with some improvement, but continued to have a significant amount of ongoing wheezing and obvious respiratory compromise. Repeat ABG after she was placed on BiPAP showed a correction of her pH at 7.37, the pO2 went up to 122 on 40% FiO2 with pCO2 that went down to 68. She was satting 96%. Chemistries again showed elevated carbon dioxide at 40 with BUN 24, creatinine 0.71. Liver functions showed an elevated AST of 51, ALT of 83. Troponin was 0.03 with an elevated BNP of 480. Blood cultures were completed along with sputum culture and she was initiated on antibiotics with Rocephin and azithromycin. She is now going to be admitted for exacerbation of chronic obstructive pulmonary disease with bronchitis and asthma again with concerns for developing community acquired pneumonia having failed to respond to outpatient treatment management. She was admitted in stable condition on BiPAP. PAST MEDICAL HISTORY: 1. Chronic obstructive pulmonary disease. 2. Hypertension. 3. Hyperlipidemia. 4. Obstructive sleep apnea. 5. Insomnia. PAST SURGICAL HISTORY: 1. Tubal ligation. HOME MEDICATIONS: 1. Lasix 40 mg daily. 2. Potassium 20 mEq b.i.d. 3. Albuterol handheld inhaler 2 puffs every 4 hours p.r.n. for shortness of breath. ALLERGIES: HYDROCODONE. FAMILY HISTORY: Noncontributory. SOCIAL HISTORY: The patient is a previous smoker. She quit in 2016. She has a long history of exposure to second hand smoke by multiple family members. She denies any alcohol or illicit drug use. She is and lives in [place] , and currently works for [employer]. REVIEW OF SYSTEMS: CONSTITUTIONAL: Noted fevers and chills, and general malaise. RESPIRATORY: As noted in History of Present Illness, worsening shortness of breath, productive cough. CARDIOVASCULAR: Denies any chest pains, palpitations or syncopal episodes. GASTROINTESTINAL: Denies any nausea, vomiting, diarrhea or constipation or abdominal pains. GENITOURINARY: Denies any dysuria, hematuria, polyuria or other urinary symptoms. NEUROLOGIC: Denies any headaches, syncopal episodes, ataxia, seizures. PHYSICAL EXAMINATION: VITAL SIGNS: Initially in the E. R. showed temperature 98.2, pulse initially 105, blood pressure 163/137, respirations 22 to 28 with obvious shortness of breath showing initial saturations on room air at 40% requiring BiPAP at 40% satting 92%. Admission weight 135.7 kg. GENERAL: On admission to the Medical/Surgical floor the patient is currently wearing BiPAP and shows to be in no acute distress,resting comfortably. She is well hydrated. HEENT: Tympanic membranes are clear bilaterally. Oropharynx is pink and moist without any lesions. NECK: Supple, non-tender with full range of motion. No jugular venous distention. CHEST: Lung sounds show notable wheezing and rhonchi heard throughout all lung rooney, diminished towards the bases. CARDIOVASCULAR: Regular rate and rhythm without appreciable murmurs, gallops, or rubs. ABDOMEN: Obese but soft, non-tender. Positive bowel sounds. EXTREMITIES: Trace of edema bilaterally. NEUROLOGIC: She is alert and oriented times three. LABORATORY: White count showed to be elevated at 11,700 with hemoglobin 13.8, hematocrit 43.9, platelet count 279,000. Differential does show a left shift. Coagulation studies showed D-dimer 0.72. Blood gas analysis initially again showed pH 7.25 with pCO2 of 90, pO2 of 71 which was on nasal cannula with a normal bicarb. After BiPAP, pH was up to 7.37, pCO2 had gone down to 68 with pO2 of 122, satting 96% on 40% FiO2. Chemistries showed an elevated carbon dioxide of 40 with BUN 24, creatinine 0.71. Again, liver functions showed an elevated AST and ALT of 51 on AST, 83 on ALT. Alkaline phosphatase was normal. Bilirubin was normal. Troponin was 0.03 in the Emergency Room. She did have an elevated BNP of 480 and initial lactic acid was 1.5 on admission. Urinalysis just showed 100 glucose, otherwise within normal limits. MICROBIOLOGY: Blood culture is pending. Sputum culture is pending. RADIOLOGY: Initially in the Emergency Room showed chest x-ray per radiology interpretation showed cardiomegaly with mild central pulmonary vascular congestion. This was followed-up with a CT of the chest given the elevated D- dimer and symptomology, and per radiology interpretation showed suboptimal contrast bolus, however no central or major vessel pulmonary embolus was noted. There were patchy areas of atelectasis noted throughout both lungs. ASSESSMENT: 1. Acute exacerbation of chronic obstructive pulmonary disease with concerns for developing community acquired pneumonia having failed to respond to outpatient treatment with antibiotics and steroids requiring noninvasive ventilatory support at time of admission. 2. Respiratory acidosis as noted on arterial blood gas requiring initiation of noninvasive ventilatory support secondary to #1. 3. Uncontrolled hypertension with an elevated BNP with no formal history of congestive heart failure, but likely secondary to ongoing respiratory compromise due to #1 with the patient not currently on any antihypertensives. 4. Chronic obstructive sleep apnea. 5. Chronic insomnia. PLAN: The patient in the E. R. was treated for concerns for exacerbation of congestive heart failure along with developing exacerbation of chronic obstructive pulmonary disease. She was given initially in the E. R. Solu-Medrol , Lasix, magnesium sulfate IV. She was given several breathing treatments and showed a poor response until she was placed on BiPAP. Will continue with BiPAP and aggressive pulmonary hygiene given that she has had an elevated D-dimer. CT of the chest had ruled out probable related to PE, therefore will continue with aggressive pulmonary hygiene with chest percussion. She will be on q.i.d. DuoNeb treatments. Will do aggressive management with IV corticosteroids with Solu-Medrol starting with 80 mg for 2 doses every 6 hours and then titrating in the morning to 60 mg every 6 hours. Will plan to reevaluate in the morning with repeat chest x-ray and laboratory studies. In regards to her blood pressure, I will put her on a Nitro patch 0.4 mg per hour as well as start her on some Lisinopril. She will have another dose of Lasix as needed. Again, she was give 80 in the E. R. Will closely monitor her blood pressure. Should she be persistently hypertensive, will utilize Clonidine p.r.n. as needed. Again, will anticipate length of stay to be 2 to 3 days until clinically improved enough to continue with outpatient management with antibiotics currently in the hospital to include Rocephin and azithromycin and transition to appropriate p.o. medications awaiting sputum cultures at that point. Will continue to monitor and treat appropriately. #[id number] [facility]
[2017-11-23] MEDS ORDERED: ACETAMINOPHEN 325 MG TAB PO PRN (14:00)
[2017-11-23] MEDS ORDERED: ONDANSETRON INJ 4 MG/2 ML VIAL IV PRN (14:00)
[2017-11-23] MEDS ORDERED: SODIUM CHLORIDE 0.9% (FLUSH) 10 ML SYG IV PRN (14:00)
[2017-11-23] MEDS ORDERED: PANTOPRAZOLE SODIUM IV 40 MG VIAL IV ONE (14:06)
[2017-11-23] MEDS ORDERED: GLUCAGON INJ 1 MG VIAL SUBCU PRN (14:16)
[2017-11-23] MEDS ORDERED: DEXTROSE 50% 25 GM/50 ML SYG IV PRN (14:16)
[2017-11-23] MEDS ORDERED: SODIUM CHL 0.9% 50ML MIN-BAG+ 50 ML IVPB ONE ×2 (14:29→23:42)
[2017-11-23] MEDS ORDERED: cefTRIAXone SODIUM 1 GM VIAL ONE ×2 (14:30→23:42)
[2017-11-23] MEDS: KCL 20 MEQ/NS 1,000 ML IVS PRN (14:38)
[2017-11-23] MEDS: cefTRIAXone SODIUM 1 GM in SODIUM CHL 0.9% 50ML MIN-BAG+ 50 ML IVPB SCH (14:38)
[2017-11-23] MEDS ORDERED: SODIUM CHLORIDE 0.9% 250ML 250 ML ONE (14:51)
[2017-11-23] MEDS: IV SET AND CAP CHANGE INJ INJ SCH (14:51)
[2017-11-23] MEDS ORDERED: AZITHROMYCIN IV 500 MG VIAL IVPB ONE (14:52)
[2017-11-23] MEDS: NITROGLYCERIN 0.4 MG/HR PATCH TOP SCH (15:47)
[2017-11-23] MEDS: AZITHROMYCIN IV 500 MG in SODIUM CHLORIDE 0.9% 250ML 250 ML IVPB SCH (15:48)
[2017-11-23] MEDS: ENOXAPARIN SODIUM 40 MG/0.4 ML SYG SUBCU SCH (15:49)
--- NOTE | 2017-11-23 16:11 | CT ---
EXAM DESCRIPTION: CTA Chest CLINICAL HISTORY: 52 years Female, elevated ddimer sob COMPARISON: Radiographs of the chest dated 05/26/2017. TECHNIQUE: Contiguous thin section axial images through the chest were obtained after the administration of intravenous contrast. 3-D, Sagittal and coronal reconstructions were reviewed. FINDINGS: The visualized thyroid gland and supraclavicular region appear normal. Few subcentimeter mediastinal lymph nodes are identified. Trachea is midline and the central tracheobronchial tree is patent. Scattered areas of atelectasis are identified in the bilateral lungs. No nodules or masses are visualized. No evidence of pleural effusions. The heart is normal in size with no pericardial effusion. The visualized aorta is nonaneurysmal with no significant atherosclerosis. The superior vena cava is normal in size and caliber.No significant coronary artery atherosclerosis. Suboptimal contrast bolus, however no central or major vessel pulmonary embolus. The esophagus appears normal throughout its visualized length. Limited evaluation of the upper abdomen demonstrates no gross abnormality. mild degenerative changes are identified throughout the thoracic spine. IMPRESSION: 1. Suboptimal contrast bolus. However no central or major vessel pulmonary embolus. 2. Patchy areas of atelectasis are noted throughout both lungs. This exam was performed according to our departmental dose-optimization program, which includes automated exposure control, adjustment of the mA and/or kV according to patient size and/or use of iterative reconstruction technique. Electronically signed by: Mary Grace Goldstein MD 11/23/2017 4:09 PM CDT
[2017-11-23] MEDS: IPRATROPIUM/ALBUTEROL 3 ML VIAL INH SCH ×2 (16:54→21:17)
[2017-11-23] MEDS: INSULIN LISPRO 100 UNITS/ML PEN SUBCU SCH ×2 (17:17→21:26)
[2017-11-23] MEDS: methylPREDNISolone SODIUM SUC 125 MG/2 ML VIAL IV SCH ×2 (17:40→23:58)
[2017-11-23] MEDS ORDERED: LISINOPRIL 10 MG TAB PO ONE (19:18)
[2017-11-23] MEDS: REMOVE OLD PATCH TOP SCH (21:26)
[2017-11-23] MEDS: POTASSIUM CHLORIDE 20 MEQ TAB PO SCH (21:26)
[2017-11-24] MEDS: cefTRIAXone SODIUM 1 GM in SODIUM CHL 0.9% 50ML MIN-BAG+ 50 ML IVPB SCH ×2 (02:17→14:14)
[2017-11-24] MEDS: PANTOPRAZOLE SODIUM IV 40 MG VIAL IV SCH (06:02)
[2017-11-24] MEDS: methylPREDNISolone SODIUM SUC 125 MG/2 ML VIAL IV SCH ×3 (06:02→17:25)
[2017-11-24] MEDS: SODIUM CHLORIDE 0.9% (FLUSH) 10 ML SYG IV PRN (06:02)
[2017-11-24] MEDS: ALBUTEROL SULFATE 2.5 MG/3 ML VIAL NEB PRN (06:55)
--- NOTE | 2017-11-24 07:02 | RAD ---
EXAM DESCRIPTION: Chest,2 Views CLINICAL HISTORY:52 years Female, Pneumonia Comparison: November 23, 2017 FINDINGS: Left basilar patchy opacities may represent atelectasis or pneumonia. No pleural effusion. No pneumothorax. Enlarged cardiac silhouette. No acute osseous abnormality. Soft tissues are unremarkable. IMPRESSION: Left basilar patchy opacities may represent atelectasis or pneumonia. Electronically signed by: Parish Bradshaw MD 11/24/2017 7:01 AM CDT
[2017-11-24] MEDS: KCL 20 MEQ/NS 1,000 ML IVS PRN (07:10)
[2017-11-24] MEDS: INSULIN LISPRO 100 UNITS/ML PEN SUBCU SCH ×5 (07:19→20:54)
[2017-11-24] MEDS ORDERED: SODIUM CHLORIDE 0.9% (FLUSH) 10 ML SYG IV ONE (07:31)
[2017-11-24] MEDS: IPRATROPIUM/ALBUTEROL 3 ML VIAL INH SCH ×4 (08:15→20:26)
[2017-11-24] MEDS ORDERED: FUROSEMIDE INJ 40 MG/4 ML VIAL IV SCH (09:00)
[2017-11-24] MEDS: POTASSIUM CHLORIDE 20 MEQ TAB PO SCH ×2 (09:23→09:49)
[2017-11-24] MEDS: LISINOPRIL 10 MG TAB PO SCH (09:24)
[2017-11-24] MEDS: NITROGLYCERIN 0.4 MG/HR PATCH TOP SCH (09:24)
[2017-11-24] MEDS: ENOXAPARIN SODIUM 40 MG/0.4 ML SYG SUBCU SCH (09:24)
[2017-11-24] MEDS: INSULIN DETEMIR 100 UNITS/ML PEN SUBCU SCH (13:05)
[2017-11-24] MEDS ORDERED: SODIUM CHL 0.9% 50ML MIN-BAG+ 50 ML IVPB ONE ×2 (13:48→20:21)
[2017-11-24] MEDS ORDERED: cefTRIAXone SODIUM 1 GM VIAL ONE ×2 (13:48→20:21)
[2017-11-24] MEDS ORDERED: SODIUM CHLORIDE 0.9% 250ML 250 ML ONE (14:20)
[2017-11-24] MEDS ORDERED: AZITHROMYCIN IV 500 MG VIAL IVPB ONE (14:20)
[2017-11-24] MEDS: AZITHROMYCIN IV 500 MG in SODIUM CHLORIDE 0.9% 250ML 250 ML IVPB SCH (14:50)
[2017-11-24] MEDS: REMOVE OLD PATCH TOP SCH (21:05)
[2017-11-25] MEDS: methylPREDNISolone SODIUM SUC 125 MG/2 ML VIAL IV SCH ×2 (00:18→05:40)
--- NOTE | 2017-11-25 00:22 | PN ---
DATE: 11/24/17 SUPERVISING PHYSICIAN: Alexander Felder M.D. SUBJECTIVE: The patient continues to require BiPAP at night. In fact, when she comes off in the morning she continues to be quite short of breath and has to sit on the edge of the bed on a bedside table propped up to assist with respirations at times. She does remain afebrile. She has had no chest pains. No nausea, vomiting or diarrhea. OBJECTIVE: VITAL SIGNS: Temperature 98.1, O2 saturations on nasal cannula continue to show 89% to 92% on 3 liters. With BiPAP she sats 92 to 94 at 32% FiO2. Blood pressure continues to be elevated at 170/98, respirations 16 with heart rate 75. I's and O's show a negative balance of 722 with 2178 in, 2900 out. Weight is 132.0 kg. GENERAL: The patient is resting comfortably sitting on the edge of the bed utilizing a bedside table. She does appear to be tired, but showing some slight improvement from admission and is able to tolerate off the BiPAP at intervals. CHEST: Lung sounds continue to be diminished throughout with no rales or rhonchi. There is still some wheezing in the upper apices. HEART: Regular rate and rhythm. ABDOMEN: Obese but soft, non-tender. Positive bowel sounds. EXTREMITIES: Without any clubbing, cyanosis or edema today. NEUROLOGIC: She is alert and oriented times three. LABORATORY: White count is down to 8,400, hemoglobin 13.1, hematocrit 41.5, platelet count 239,000. Differential continues to show a left shift. Chemistries today showed an elevated potassium at 5.2, carbon dioxide continues to be elevated at 39, BUN 24, creatinine 0.64. Blood sugars continue to be elevated from 268 to 400. Calcium 8.6, hemoglobin A1c was 6.5. MICROBIOLOGY: Sputum culture is pending. Blood cultures remain negative at 24 hours. RADIOLOGY: Chest x-ray this morning per radiology interpretation shows left basilar patchy opacities which may represent atelectasis or pneumonia. ASSESSMENT: 1. Acute exacerbation of chronic obstructive pulmonary disease with concerns for developing community acquired pneumonia having failed to respond to outpatient treatment plan with antibiotics and steroids, and still requiring noninvasive ventilatory support. 2. Respiratory acidosis on admission, improving with noninvasive ventilatory support secondary to #1. 3. Uncontrolled hypertension with an elevated BNP but no formal history of congestive heart failure likely secondary to ongoing respiratory compromise with the patient not currently on any antihypertensive at time of admission. 4. Hyperglycemia secondary to IV corticosteroids requiring sliding scale and long-acting insulin with Levemir. 5. Chronic obstructive sleep apnea not currently utilizing CPAP. 6. Chronic insomnia likely secondary to above. PLAN: The patient continues to have significant decreased respiratory efforts and will continue to benefit from aggressive pulmonary hygiene, including continued moderate dose of corticosteroids. I will have her on 60 mg every 6 hours for an additional 3 doses. She continues to utilize BiPAP. Will work to slowly titrate this off. Right now she utilizes it more at night, but throughout the day sometimes when she is short of breath she certainly utilizes it. She continues to have some hypertension and I have added Lisinopril. She continues with Nitro patch and on Lasix. Will continue to monitor her and add medications as needed. Likely on discharge the patient will need to continue with antihypertensive medications. She is making slow clinical progress and anticipate at least another 48 hours of more aggressive management with corticosteroids and noninvasive ventilatory support as she slowly weans off. Will await sputum culture to further target antibiotic therapy as appropriate. Until then, continue to monitor and treat appropriately. #[id number] [facility]
[2017-11-25] MEDS: ALBUTEROL SULFATE 2.5 MG/3 ML VIAL NEB PRN ×2 (00:38→04:27)
[2017-11-25] MEDS: cefTRIAXone SODIUM 1 GM in SODIUM CHL 0.9% 50ML MIN-BAG+ 50 ML IVPB SCH ×2 (02:08→14:20)
[2017-11-25] MEDS: PANTOPRAZOLE SODIUM IV 40 MG VIAL IV SCH (06:09)
[2017-11-25] MEDS: INSULIN LISPRO 100 UNITS/ML PEN SUBCU SCH ×7 (07:58→20:58)
[2017-11-25] MEDS: IPRATROPIUM/ALBUTEROL 3 ML VIAL INH SCH (08:25)
[2017-11-25] MEDS: ENOXAPARIN SODIUM 40 MG/0.4 ML SYG SUBCU SCH (10:04)
[2017-11-25] MEDS: FUROSEMIDE 40 MG TAB PO SCH (10:04)
[2017-11-25] MEDS: hydroCHLOROthiazide 12.5 MG CAP PO SCH (10:08)
[2017-11-25] MEDS: INSULIN DETEMIR 100 UNITS/ML PEN SUBCU SCH ×2 (10:08→22:32)
[2017-11-25] MEDS: BUDESONIDE NEBS 0.5 MG/2 ML VIAL NEB SCH ×2 (10:24→20:30)
[2017-11-25] MEDS: LISINOPRIL 10 MG TAB PO SCH (10:31)
[2017-11-25] MEDS: NITROGLYCERIN 0.4 MG/HR PATCH TOP SCH (10:31)
--- NOTE | 2017-11-25 10:48 | PN ---
SUPERVISING PHYSICIAN: Ana Felder MD DATE: 11/25/17 SUBJECTIVE: The patient states she is still having quite a bit of shortness of breath and coughing. She utilized the BiPAP last night without any difficulties. OBJECTIVE: VITAL SIGNS: Blood pressure 143/78. Heart rate 71. Respiratory rate 22. Temperature afebrile. O2 saturation 93%. GENERAL: Ms. Scherer is a 52-year-old female who is in mild respiratory distress at rest. NEUROLOGIC: Alert and oriented. LUNGS: Diminished sounds bilaterally and with expiratory wheezing and scattered rhonchi. CARDIOVASCULAR: Regular rate and rhythm. Normal S1, S2. ABDOMEN: Obese. Positive bowel sounds. EXTREMITIES: Lower extremities with no significant edema. Pulses 2+. Capillary refill is less than 2 seconds. LABORATORY: White count 8.4, hemoglobin 13.1, hematocrit 41.5, platelet count 239. Chemistry shows sodium 137, potassium 4.6, chloride 92, CO2 38, BUN 27, creatinine 0.69, glucose 272, calcium 8.6. Chest x-ray was not done this morning. ASSESSMENT: 1. Acute exacerbation of chronic obstructive pulmonary disease. 2. Acute on chronic respiratory failure. 3. Uncontrolled hypertension. 4. Undiagnosed diabetes mellitus as evidenced by hemoglobin A1c of 6.5. 5. Obstructive sleep apnea which is likely actually obesity hypoventilation syndrome also. 6. Chronic insomnia. PLAN: At this point, I am going to reduce her steroids to 40 mg every 6 hours. I have placed her on q.4h. DuoNeb instead of q.i.d. I also started her on Cozaar/HCTZ for her hypertension. I am going to discontinue the nitroglycerin patch. She will likely need to go home eventually on titrating steroids in addition to the fact she will need to followup and have her diabetes addressed. Due to her lack of treatment for hypertension in the past, she will need to go home on some antihypertensive as well. We will recheck labs tomorrow as well as chest x-ray and adjust medications accordingly. #[id number] [facility]
[2017-11-25] MEDS: methylPREDNISolone SODIUM SUC 40 MG/ML VIAL IV SCH ×3 (12:34→23:54)
[2017-11-25] MEDS: IPRATROPIUM/ALBUTEROL 3 ML VIAL NEB PRN ×2 (12:55→20:30)
[2017-11-25] MEDS ORDERED: LOSARTAN POTASSIUM 25 MG TAB ONE ×2 (13:29→13:32)
[2017-11-25] MEDS: AZITHROMYCIN IV 500 MG in SODIUM CHLORIDE 0.9% 250ML 250 ML IVPB SCH (13:47)
[2017-11-25] MEDS ORDERED: cefTRIAXone SODIUM 1 GM VIAL ONE ×2 (14:35→20:37)
[2017-11-25] MEDS ORDERED: SODIUM CHL 0.9% 50ML MIN-BAG+ 50 ML IVPB ONE ×2 (14:35→20:37)
[2017-11-25] MEDS ORDERED: SODIUM CHLORIDE 0.9% 250ML 250 ML ONE (15:55)
[2017-11-25] MEDS ORDERED: AZITHROMYCIN IV 500 MG VIAL IVPB ONE (15:56)
[2017-11-25] MEDS ORDERED: amLODIPine BESYLATE 5 MG TAB ONE (18:33)
[2017-11-25] MEDS: IPRATROPIUM/ALBUTEROL 3 ML VIAL NEB SCH (23:55)
[2017-11-25] MEDS: SODIUM CHLORIDE 0.9% (FLUSH) 10 ML SYG IV PRN (23:55)
[2017-11-26] MEDS ORDERED: IPRATROPIUM/ALBUTEROL 3 ML VIAL NEB SCH
[2017-11-26] MEDS: cefTRIAXone SODIUM 1 GM in SODIUM CHL 0.9% 50ML MIN-BAG+ 50 ML IVPB SCH ×2 (02:17→13:29)
[2017-11-26] MEDS: SODIUM CHLORIDE 0.9% (FLUSH) 10 ML SYG IV PRN ×2 (02:18→06:22)
[2017-11-26] MEDS: IPRATROPIUM/ALBUTEROL 3 ML VIAL NEB SCH ×5 (04:55→20:08)
[2017-11-26] MEDS: methylPREDNISolone SODIUM SUC 40 MG/ML VIAL IV SCH ×3 (06:21→18:03)
[2017-11-26] MEDS: PANTOPRAZOLE SODIUM IV 40 MG VIAL IV SCH (06:21)
--- NOTE | 2017-11-26 06:52 | RAD ---
EXAM DESCRIPTION: Chest,1 View CLINICAL HISTORY:52 years Female, copd Comparison: November 24, 2017 FINDINGS: Left basilar opacities may be artifactual may represent atelectasis or pneumonia. Cardiac silhouette is unchanged. Right lung is clear. No pneumothorax. No pleural effusion. Electronically signed by: Parish Bradshaw MD 11/26/2017 6:50 AM CDT
[2017-11-26] MEDS ORDERED: amLODIPine BESYLATE 5 MG TAB ONE (07:11)
[2017-11-26] MEDS: INSULIN LISPRO 100 UNITS/ML PEN SUBCU SCH ×7 (07:20→21:08)
[2017-11-26] MEDS: hydroCHLOROthiazide 12.5 MG CAP PO SCH (08:29)
[2017-11-26] MEDS: FUROSEMIDE 40 MG TAB PO SCH (08:29)
[2017-11-26] MEDS: ENOXAPARIN SODIUM 40 MG/0.4 ML SYG SUBCU SCH (08:29)
[2017-11-26] MEDS: INSULIN DETEMIR 100 UNITS/ML PEN SUBCU SCH ×2 (08:31→21:10)
[2017-11-26] MEDS ORDERED: LOSARTAN POTASSIUM 100 MG TAB ONE (08:32)
[2017-11-26] MEDS: LOSARTAN POTASSIUM 100 MG TAB PO SCH (08:33)
[2017-11-26] MEDS: BUDESONIDE NEBS 0.5 MG/2 ML VIAL NEB SCH ×2 (08:55→20:08)
[2017-11-26] MEDS ORDERED: LOSARTAN POTASSIUM 25 MG TAB PO SCH (09:00)
[2017-11-26] MEDS ORDERED: amLODIPine BESYLATE 5 MG TAB PO SCH ×2 (09:00→21:00)
--- NOTE | 2017-11-26 10:19 | PN ---
SUPERVISING PHYSICIAN: Ana Felder MD DATE: 11/26/17 SUBJECTIVE: The patient is sitting on the side of the bed, says she feels better than she did yesterday. Her shortness of breath has improved, her cough is less intense. OBJECTIVE: VITAL SIGNS: Blood pressure 144/73. Heart rate 95. Respiratory rate 18. Temperature 98.3. O2 saturation 93%. GENERAL: Ms. Scherer is a 52-year-old female who is in no active distress currently. NEUROLOGIC: Alert and oriented. LUNGS: Scattered rhonchi near resolution of the wheezing. CARDIOVASCULAR: Regular rate and rhythm. Normal S1, S2. ABDOMEN: Soft, obese. Positive bowel sounds. EXTREMITIES: Lower extremities with no edema. Pulses 2+. LABORATORY: White count 8.0, hemoglobin 13.3, hematocrit 43.1, platelet count 240. Chemistry shows sodium 138, potassium 4.6, chloride 92, CO2 of 39, BUN 30 , creatinine 0.71, glucose 259, calcium 8.7. Chest x-ray unchanged. . ASSESSMENT: 1. Acute exacerbation of chronic obstructive pulmonary disease. 2. Acute on chronic respiratory failure. 3. Obstructive sleep apnea with obesity hypoventilation syndrome. 4. Uncontrolled hypertension. 5.. Diabetes mellitus type 2. 6. Chronic insomnia. PLAN: At this point, I am going to reduce her steroids to 20 mg every 6 hours. I believe the steroids in addition to the inhaled steroids with Pulmicort have contributed to her improvement. Additionally, her blood pressure is still a little bit high so I am going to increase the dose of Cozaar as well as the Norvasc. I am going to put the Cozaar in the morning and the Norvasc at night. Blood sugars seem to be improving with the reduction of steroids. We will need to be cautious about watching for hypoglycemia and probably will need to reduce the Levemir as we go down further with the steroids. I did discuss with her the discharge planning. She will need to followup with Huey Cazares and I do recommend discharging her on 100 mg of Cozaar daily along with 12.5 mg of Hydrochlorothiazide daily and utilizing the Norvasc 10 mg at night for her hypertension. I told her that Huey could address her diabetes given the fact that her hemoglobin A1C is 6.5. She may not require any injectable insulin at this time and can utilize p.o. medications. I will defer to him for that. She would benefit, however, from inhaled steroids as well as bronchodilators upon discharge and she will probably need a titrating dose of p.o. steroids. I feel like she can probably go home in the next 4 hours or so if she continues to improve. #[id number] [facility]
[2017-11-26] MEDS ORDERED: SODIUM CHL 0.9% 50ML MIN-BAG+ 50 ML IVPB ONE ×3 (13:26→19:42)
[2017-11-26] MEDS ORDERED: cefTRIAXone SODIUM 1 GM VIAL ONE ×2 (13:27→19:41)
[2017-11-26] MEDS: IV SET AND CAP CHANGE INJ INJ SCH (13:34)
[2017-11-26] MEDS ORDERED: AZITHROMYCIN IV 500 MG VIAL IVPB ONE (14:33)
[2017-11-26] MEDS ORDERED: SODIUM CHLORIDE 0.9% 250ML 250 ML ONE (14:33)
[2017-11-26] MEDS: AZITHROMYCIN IV 500 MG in SODIUM CHLORIDE 0.9% 250ML 250 ML IVPB SCH (14:40)
[2017-11-27] MEDS: methylPREDNISolone SODIUM SUC 40 MG/ML VIAL IV SCH ×3 (00:02→12:30)
[2017-11-27] MEDS: SODIUM CHLORIDE 0.9% (FLUSH) 10 ML SYG IV PRN (00:03)
[2017-11-27] MEDS: IPRATROPIUM/ALBUTEROL 3 ML VIAL NEB SCH ×4 (00:21→11:54)
[2017-11-27] MEDS: cefTRIAXone SODIUM 1 GM in SODIUM CHL 0.9% 50ML MIN-BAG+ 50 ML IVPB SCH ×2 (02:28→13:34)
[2017-11-27] MEDS ORDERED: OMEPRAZOLE CAP 20 MG CAP ONE (03:55)
[2017-11-27] MEDS ORDERED: OMEPRAZOLE CAP 20 MG CAP PO SCH (06:30)
[2017-11-27] MEDS: INSULIN LISPRO 100 UNITS/ML PEN SUBCU SCH ×4 (07:47→12:29)
[2017-11-27] MEDS: ENOXAPARIN SODIUM 40 MG/0.4 ML SYG SUBCU SCH (08:34)
[2017-11-27] MEDS: hydroCHLOROthiazide 12.5 MG CAP PO SCH (08:34)
[2017-11-27] MEDS: FUROSEMIDE 40 MG TAB PO SCH (08:34)
[2017-11-27] MEDS: LOSARTAN POTASSIUM 100 MG TAB PO SCH (08:34)
[2017-11-27] MEDS: INSULIN DETEMIR 100 UNITS/ML PEN SUBCU SCH (08:35)
[2017-11-27] MEDS: BUDESONIDE NEBS 0.5 MG/2 ML VIAL NEB SCH (08:45)
[2017-11-27 12:19] VITALS: O2SAT 94
[2017-11-27] MEDS ORDERED: cefTRIAXone SODIUM 1 GM VIAL ONE (13:25)
[2017-11-27] MEDS ORDERED: SODIUM CHL 0.9% 50ML MIN-BAG+ 50 ML IVPB ONE (13:25)
[2017-11-27] MEDS ORDERED: AZITHROMYCIN IV 500 MG VIAL IVPB ONE (13:37)
[2017-11-27] MEDS ORDERED: SODIUM CHLORIDE 0.9% 250ML 250 ML ONE (13:37)
[2017-11-27] MEDS: AZITHROMYCIN IV 500 MG in SODIUM CHLORIDE 0.9% 250ML 250 ML IVPB SCH (14:14)
[2017-11-27 14:21] VITALS: BP 152/74; TEMP 97.5
--- NOTE | 2017-12-07 09:39 | DS ---
SUPERVISING PHYSICIAN: Ana Felder MD ADMISSION DIAGNOSES: 1. Acute exacerbation of chronic obstructive pulmonary disease with concerns for developing community acquired pneumonia having failed to respond to outpatient treatment plan with antibiotics and steroids, and still requiring noninvasive ventilatory support at time of admission. 2. Respiratory acidosis as noted on arterial blood gas requiring initiation with noninvasive ventilatory support secondary to #1. 3. Uncontrolled hypertension with an elevated BNP with no formal history of congestive heart failure likely secondary to ongoing respiratory compromise due to #1 with the patient not currently on any antihypertensive.. 4. Chronic obstructive sleep apnea. 5. Chronic insomnia. DISCHARGE DIAGNOSIS: 1. Acute exacerbation of chronic obstructive pulmonary disease. 2. Acute on chronic respiratory failure. 3. Obstructive sleep apnea with obesity hypoventilation syndrome. 4. Uncontrolled hypertension. 5. Diabetes mellitus type 2. 6. Chronic insomnia. 4. Chronic obstructive sleep apnea.with obesity, hypoventilation syndrome. REASON FOR HOSPITALIZATION: Ms. Scherer is a 52 year-old female patient who initially presented to the Emergency Room on 11/23/17 with a 7- day history of worsening shortness of breath. She had reported that she started having shortness of breath the week before on Thursday and then on Thursday went to see her primary care provider, Huey Cazares, nurse practitioner. At that time she was started on Cephalexin and Albuterol treatments. She notes she got a little bit better on but Thursday followed-up and was again no better. She went through the weekend and progressively worsened to the point where she was having a significant amount of distress. She then presented to the Emergency Room. She was given breathing treatments, put on BiPAP after review showed she was having a significant amount of respiratory acidosis. She was given breathing treatments, Solu-Medrol, magnesium and had some improvement but continued to have a significant amount of ongoing wheezing and obvious respiratory compromise. Repeat ABG after she was placed on BiPAP showed a correction of her pH to 7.37 with increased pO2 of 122 on 40% FiO2 and improvement in PCO2 that had gone down to 68. Saturation was 96% at that time. Blood cultures were completed along with sputum cultures and antibiotics were initiated with Rocephin and azithromycin. She was admitted for exacerbation of chronic obstructive pulmonary disease with bronchitis and asthma again with concerns for developing community acquired pneumonia having failed to respond to outpatient treatment measures. She was admitted in stable condition on BiPAP. LABORATORY STUDIES: Initial white count was 11,700, at discharge was 7,700. Hemoglobin and hematocrit were stable, at discharge were 14.3 and 44.8 respectively with platelet count 222,000, differential did show a left shift on admission and both at discharge. Coagulation studies showed just a slightly elevated D-dimer of 0.72. She had 2 sets of blood gases initially in the Emergency Room, pH was 7.25 with PC02 of 90, P02 of 71 and bicarb 38, saturation 94%. Repeat after being placed on BiPAP showed a pH of 7.37 with PC02 of 68 and P02 of 122 and bicarb of 38. Chemistries initially on admission , BUN was elevated at 24, creatinine normal at 0.71, carbon dioxide elevated at 40. After initiation of BiPAP and further treatments, at discharge she did have a slightly elevated P02 of 35, creatinine stable and on discharge it was 0.67. Blood sugars were fairly elevated due to high-dose corticosteroids ranging anywhere from 178 to 400. Liver functions initially on admission did show elevated AST of 51, ALT 83 and BNP elevated at 480. Initial troponin was 0.03. Urinalysis showed 100 of glucose, otherwise was within normal limits. MICROBIOLOGY: Blood cultures remained negative after 5 days. Sputum culture showed yeast and abundant gram positive yadira initially but final report noted abundant mixed normal yadira. RADIOLOGY: Chest x-ray in the Emergency Room prior to admission and per radiology interpretation showed cardiomegaly with mild pulmonary vascular congestion and mild basilar atelectasis suspected. No pleural effusions, no pneumothorax. She also had a CTA due to her elevated D-dimer and symptomatology and per radiology interpretation there was noted suboptimal contrast bolus, however, no central or major vessel pulmonary embolus noted. There was noted patchy areas of atelectasis throughout the lungs. She had several x-rays through her hospitalization and final x-ray on 11/26/17 per radiology interpretation showed left basilar opacities which could be artifactual but may represent atelectasis or pneumonia. Right lung was clear, no pneumothorax, no pleural effusions. HOSPITAL COURSE: Ms. Scherer was admitted on 11/23/17. She required very aggressive pulmonary hygiene along with very aggressive high-dose corticosteroids and showed very slow progression clinically. After multiple days of steroids and treatments, she did finally improve to the point where she was able to continue with outpatient management. She had some elevated blood pressures but after reinstating her home medications, she apparently had run out of and had not gotten any refills, she showed good response. DISCHARGE ASSESSMENT: VITAL SIGNS: Temperature 97.5, pulse 82, blood pressure 152/74, saturation 94% on 2 liter nasal cannula. GENERAL: The patient appeared to be in no acute distress. She was alert. CHEST: Lung sounds were much improved with no obvious wheezing at time of discharge. HEART: Regular rate and rhythm. ABDOMEN: Obese, soft, non-tender, positive bowel sounds. EXTREMITIES: Without edema. NEUROLOGIC: Alert and oriented x 3. PLAN: Mr. Scherer was discharged on 11/27/17 with instructions to followup with Huey Cazares, Nurse Practitioner, in 7 days or sooner if needed. She was told to resume her home medications as instructed and take all new medications that were directed for new prescriptions. She was told to return to the hospital should she have any concerning symptoms. ACTIVITY AT DISCHARGE: Increase activity as tolerated. She had arrangements for 02, both portable and at home. DIET: Diabetic diet with emphlysis on strict control while on steroids and expect higher blood sugars. DISCHARGE MEDICATIONS: 1. ProAir inhaler 2 puffs every 4 hours as needed, one inhaler. 2. Albuterol Nebs, 2.5 mg nebs every 4 hours if needed, #60. 3. Amlodipine 10 mg daily, #90. 4. Lasix 40 mg daily, #30. 5. Levaquin 750 mg daily, #7. 6. Losartan 100 mg daily, #90. 7. Singulair 10 mg daily, #90. 8. Potassium chloride 20 mEq tachycardia, #60. 9. Prednisone tapering dose, 10 mg tablets, 40 mg for 3 days, 30 mg, then 20 mg , then 10 mg, all for 3 days each as directed, #30 count. CONDITION ON DISCHARGE: Stable and improved. #[id number] [facility]
== END 2017-11-27 15:18 | disposition home or self-care (01) | DRG 190 ==
LOC: ER 10:28 → MS 13:23
PROVIDERS: ADMIT Nurse Practitioner Family; ATTEND Nurse Practitioner Family
DX: J44.1 Chronic obstructive pulmonary disease with (acute) exacerbation (principal); J96.20 Acute and chronic respiratory failure, unspecified whether with hypoxia or hypercapnia; E87.2 Acidosis; J18.9 Pneumonia, unspecified organism; I10 Essential (primary) hypertension; G47.33 Obstructive sleep apnea (adult) (pediatric); G47.00 Insomnia, unspecified; E11.649 Type 2 diabetes mellitus with hypoglycemia without coma; Z79.84 Long term (current) use of oral hypoglycemic drugs; T38.0X5A Adverse effect of glucocorticoids and synthetic analogues, initial encounter; J44.0 Chronic obstructive pulmonary disease with (acute) lower respiratory infection

== ENCOUNTER → 2018-01-11 | Outpatient (CLI) | payer SELFPAY | LOC: LAB.O 08:09 | PROVIDERS: ATTEND Nurse Practitioner Family | DX: E11.65 Type 2 diabetes mellitus with hyperglycemia (principal) ==

== ENCOUNTER 2019-01-06 17:58 | Inpatient (IN) | payer SELFPAY ==
--- NOTE | 2019-01-06 17:58 | HP ---
SUPERVISING PHYSICIAN: Ana Felder MD CHIEF COMPLAINT: Respiratory distress, chronic obstructive pulmonary disease exacerbation. HISTORY OF PRESENT ILLNESS: Ms. Scherer is a 53-year-old female patient with a history of chronic obstructive pulmonary disease. She was seen in Huey Cazares's office today for increasing shortness of breath with productive cough. At that time, she was in mild distress in regards to her respiratory effort. She is dependent on O2 at 2 liters. In the office, she was satting in the low 80s with supplemental oxygen. Initial laboratory studies showed she had a left shift and white count of 10,700. Hemoglobin was 12.1 and hematocrit 35.0. Blood gas analysis showed a pH 7.42, pO2 52, pCO2 53, saturation 86% on 2 liters nasal cannula. She was given several breathing treatments along with IV steroids in the office, but failed to have any significant improvement in her O2 saturations and respiratory effort. At that point, she was referred for direct admission for concerns for worsening exacerbation of COPD and possibly community acquired pneumonia. On initial presentation on admission, she was satting 83% to 85% on nasal cannula and was placed on CPAP. The patient was placed in observation, then referred to the ER for standard admission. Her condition did improve in the ER and improved her saturations to 93%. At that point, it was felt she was stable enough to continue treatment in the hospital. The patient is going to be admitted for exacerbation of COPD with concerns for developing pneumonia. PAST MEDICAL HISTORY: 1. Chronic obstructive pulmonary disease with frequent exacerbations. 2. Hypertension. 3. Hyperlipidemia. 4. Obstructive sleep apnea. 5. Insomnia. PAST SURGICAL HISTORY: 1. Tubal ligation. MEDICATIONS: Please see updated list of medications in electronic medical record. ALLERGIES: HYDROCODONE. FAMILY HISTORY: Noncontributory. SOCIAL HISTORY: The patient is a previous smoker, but she quit in 2016. She has a long history of exposure to secondhand smoke from her family members. She denies any illicit drug use or alcohol use. REVIEW OF SYSTEMS: CONSTITUTIONAL: Negative for any fevers, chills. She notes some general malaise. RESPIRATORY: As noted in history of present illness with some shortness of breath and cough. CARDIOVASCULAR: Negative for chest pain, palpitations or syncopal episodes. GASTROINTESTINAL: Negative for nausea, vomiting, diarrhea, constipation or abdominal pain. GENITOURINARY: Negative for dysuria, hematuria, polyuria or other urinary symptoms. NEUROLOGIC: Negative for headaches, syncopal episodes or seizures. PHYSICAL EXAMINATION: VITAL SIGNS: Initially on admission, she was tachycardic at 105 with a temperature 98.3, saturation 83% on 2 liters nasal cannula. Respirations initially 20 to 28. After breathing treatment, she increase of oxygen saturation up to 94% on nasal cannula. Blood pressure 137/80. Admission weight 115.9 kg. GENERAL: The patient was in mild distress due to increased respiratory effort. HEENT: Tympanic membranes clear bilaterally. Oropharynx is pink, moist without any lesions. NECK: Supple, nontender with full range of motion. RESPIRATORY: Lung sounds diminished throughout with some inspiratory and expiratory wheezing. No rhonchi or rales were noted. CARDIOVASCULAR: Regular rate and rhythm without any appreciable murmurs, gallops, or rubs. ABDOMEN: Obese, but oft, nontender. Positive bowel sounds. EXTREMITIES: There is no cyanosis, clubbing or edema. NEUROLOGIC: The patient is alert and oriented times three. Cranial nerves II- XII are grossly intact. Facial features are symmetrical. Extraocular movements are within normal limits. There is no nystagmus noted. LABORATORY: Laboratory completed in Huey Cazares's office prior to admission showed white count 10,700, hemoglobin 12.1, hematocrit 35.5, platelet count 297,000. Differential did show a left shift. Her blood gas analysis on room air revealed pH 7.42, pO2 52, pCO2 53, saturation 86%. Chemistries showed just a mildly low potassium of 3.4. Otherwise, electrolytes were within normal limits. BUN 13, creatinine 1.21. Blood sugar 149. Lactic acid 2.2, magnesium 1.9, calcium 1.6. Liver functions all within normal limits. BNP 38.4. Urinalysis pending. Influenza A and B by PCR was negative. Group A Strep rapid screen was negative. Blood cultures pending. Sputum culture pending. RADIOLOGY: Chest x-ray per radiologic interpretation in office showed atelectatic type infiltrate on the left lateral chest. Interval improvement in chest compared to previous exam from November of 2017. Heart within normal limits. There was note of background chronic interstitial lung disease. ASSESSMENT: 1. Acute exacerbation of chronic obstructive pulmonary disease with developing right sided pneumonia, community acquired, having failed to respond to outpatient treatment measures. 2. Respiratory distress with mild hypoxia on room air in a patient oxygen dependent. 3. Uncontrolled hypertension history, but controlled on current admission. 4. Chronic obstructive sleep apnea. 5. Chronic insomnia. PLAN: The patient was directly admitted to the Floor, but was showing a significant amount of distress in regards to respiratory efforts, therefore, she was referred to the Emergency Room for evaluation and stabilization. She was given breathing treatments and improved O2 saturation and showing to be stable. At that time, she was sent for admission. She will have antibiotic therapy to cover right sided pneumonia with azithromycin and Rocephin. Given her chronic obstructive pulmonary disease and the wheezing, we will be fairly aggressive with steroids and give her 125 mg initially to be followed q.4h. with 200 mg at least 3 doses. We also started her on Pulmicort as well as aggressive hygiene therapy with bronchial therapy including DuoNeb treatments and chest percussive therapy. We will review her medications and resume those as appropriate to care once they have been updated and verified. She will be on DVT prophylaxis per protocol with Lovenox. I anticipate her length of stay to be at least 2 to 3 days. Until she improves enough to continue with outpatient management on oral therapy, we will continue to monitor and treat as needed. #[id number] [facility]
[2019-01-06] MEDS ORDERED: ALBUTEROL SULFATE 2.5 MG/3 ML VIAL NEB ONE (18:24)
[2019-01-06] MEDS ORDERED: GLUCAGON INJ 1 MG VIAL SUBCU PRN (20:04)
[2019-01-06] MEDS ORDERED: ONDANSETRON INJ 4 MG/2 ML VIAL IV PRN (20:04)
[2019-01-06] MEDS ORDERED: SODIUM CHLORIDE 0.9% (FLUSH) 10 ML SYG IV PRN (20:04)
[2019-01-06] MEDS ORDERED: ACETAMINOPHEN 325 MG TAB PO PRN (20:04)
[2019-01-06] MEDS ORDERED: DEXTROSE 50% 25 GM/50 ML SYG IV PRN (20:04)
[2019-01-06] MEDS ORDERED: MAGNESIUM HYDROXIDE 30 ML UD PO PRN (20:04)
[2019-01-06] MEDS ORDERED: methylPREDNISolone SODIUM SUC 125 MG/2 ML VIAL IV ONE (20:10)
[2019-01-06] MEDS ORDERED: SODIUM CHLORIDE 0.9% 250ML 250 ML ONE (20:21)
[2019-01-06] MEDS ORDERED: AZITHROMYCIN IV 500 MG VIAL IVPB ONE (20:22)
[2019-01-06] MEDS ORDERED: SODIUM CHL 0.9% 50ML MIN-BAG+ 50 ML IVPB ONE (20:22)
[2019-01-06] MEDS ORDERED: cefTRIAXone SODIUM 1 GM VIAL ONE (20:22)
[2019-01-06] MEDS: cefTRIAXone SODIUM 1 GM in SODIUM CHL 0.9% 50ML MIN-BAG+ 50 ML IVPB SCH (20:27)
[2019-01-06] MEDS: IV SET AND CAP CHANGE INJ INJ SCH (20:27)
[2019-01-06] MEDS: IPRATROPIUM/ALBUTEROL 3 ML VIAL INH SCH (20:44)
[2019-01-06] MEDS: BUDESONIDE NEBS 0.5 MG/2 ML INH NEB SCH (20:44)
[2019-01-06] MEDS: AZITHROMYCIN IV 500 MG in SODIUM CHLORIDE 0.9% 250ML 250 ML IVPB SCH (20:59)
[2019-01-06] MEDS: INSULIN LISPRO 100 UNITS/ML PEN SUBCU SCH (21:02)
[2019-01-07] MEDS: methylPREDNISolone SODIUM SUC 125 MG/2 ML VIAL IV SCH ×4 (02:55→18:04)
[2019-01-07] MEDS: ALBUTEROL SULFATE 2.5 MG/3 ML VIAL NEB PRN ×3 (03:10→23:29)
--- NOTE | 2019-01-07 06:28 | RAD ---
EXAM: XR Chest, 2 Views CLINICAL HISTORY: Pneumonia TECHNIQUE: Frontal and lateral views of the chest. COMPARISON: 01/06/2019. FINDINGS: Limitations: None. Lungs: Stable mild parenchymal and interstitial scarring. No consolidation. Pleural space: Unremarkable. No pneumothorax. Heart: Stable prominent cardiac shadow. Mediastinum: Unremarkable. Bones/joints: Unremarkable. IMPRESSION: No acute findings in the chest. Electronically signed by: Elsi Clark MD 01/07/2019 6:26 AM CDT
[2019-01-07] MEDS ORDERED: PANTOPRAZOLE SODIUM IV 40 MG VIAL IV SCH (06:30)
[2019-01-07] MEDS ORDERED: metOLazone 2.5 MG TAB PO ONE (07:17)
[2019-01-07] MEDS ORDERED: metFORMIN HCL 500 MG TAB ONE (07:18)
[2019-01-07] MEDS: INSULIN LISPRO 100 UNITS/ML PEN SUBCU SCH ×7 (07:20→21:07)
[2019-01-07] MEDS: IPRATROPIUM/ALBUTEROL 3 ML VIAL INH SCH ×4 (07:55→19:57)
[2019-01-07] MEDS: BUDESONIDE NEBS 0.5 MG/2 ML INH NEB SCH ×2 (07:55→19:58)
[2019-01-07] MEDS: amLODIPine BESYLATE 5 MG TAB PO SCH (08:29)
[2019-01-07] MEDS: FUROSEMIDE 40 MG TAB PO SCH (08:29)
[2019-01-07] MEDS: ENOXAPARIN SODIUM 40 MG/0.4 ML SYG SUBCU SCH (08:29)
[2019-01-07] MEDS: MONTELUKAST 10 MG TAB PO SCH (08:29)
[2019-01-07] MEDS ORDERED: NON-FORMULARY MEDICATION 1 EA MIS (Metformin Hcl [Metformin Hydrochloride] 1,000 MG) PO SCH (09:00)
[2019-01-07] MEDS ORDERED: METOLAZONE 10 MG PO SCH (09:00)
[2019-01-07] MEDS ORDERED: methylPREDNISolone SODIUM SUC 125 MG/2 ML VIAL IV SCH (12:00)
--- NOTE | 2019-01-07 13:13 | PN ---
SUPERVISING PHYSICIAN: Ana Felder MD DATE: 01/07/19 SUBJECTIVE: The patient is sitting up in her bed. She is utilizing her BiPAP. She complains of shortness of breath. She is unable to tolerate room air or nasal cannula and has to wear BiPAP most of the time. She does admit to using a lot more of her oral steroids at home as she has a p.r.n. prescription for prednisone. Otherwise, she denies chest pain, nausea or vomiting. OBJECTIVE: VITAL SIGNS: Temperature 97.1. Heart rate 96. Blood pressure 112/65. Respiratory rate 21 to 24. O2 saturation 94% on the BiPAP. RESPIRATORY: Diminished breath sounds throughout with some scattered rhonchi in the apices. She is tachypneic and has to speak in 2 to 3 word phrases due to her shortness of breath. She does have increased worth of breathing. CARDIAC: Regular rate and rhythm. GASTROINTESTINAL: Abdomen is soft, nondistended, nontender. Bowel sounds are positive. NEUROLOGIC: Awake, alert and oriented times three. LABORATORY: WBC 10,900, hemoglobin 11.5, hematocrit 35.1. She does have a left shift on her differential. Electrolytes are basically within normal limits except chloride is slightly low at 94. Carbon dioxide is high at 32. Blood cultures are negative to date. Sputum culture dis pending. Chest x-ray shows no acute findings in the chest. All other labs and films have been reviewed via the EMR. ASSESSMENT: 1. Acute exacerbation of chronic obstructive pulmonary disease with developing right sided pneumonia, community acquired, having failed to respond to outpatient treatment measures. 2. Respiratory distress with mild hypoxia on room air in a patient oxygen dependent. 3. Uncontrolled hypertension history, but controlled on current admission. 4. Chronic obstructive sleep apnea. 5. Chronic insomnia. PLAN: We will continue present supportive care. We will continue to monitor her cultures and change her antibiotic therapy as needed. We will have to do a very slow taper on her IV steroids as I think she takes more of her oral steroids on a daily basis than she originally reported. We will check labs and chest x-ray in the morning. She will most likely have to go home on daily steroids. We will continue to monitor the patient closely and follow as needed. [facility][id number] [facility]
[2019-01-07] MEDS: metFORMIN HCL 500 MG TAB PO SCH (16:44)
[2019-01-07] MEDS ORDERED: SODIUM CHLORIDE 0.9% 250ML 250 ML ONE (19:09)
[2019-01-07] MEDS ORDERED: SODIUM CHL 0.9% 50ML MIN-BAG+ 50 ML IVPB ONE (19:10)
[2019-01-07] MEDS ORDERED: AZITHROMYCIN IV 500 MG VIAL IVPB ONE (19:10)
[2019-01-07] MEDS ORDERED: cefTRIAXone SODIUM 1 GM VIAL ONE (19:10)
[2019-01-07] MEDS: cefTRIAXone SODIUM 1 GM in SODIUM CHL 0.9% 50ML MIN-BAG+ 50 ML IVPB SCH (20:02)
[2019-01-07] MEDS: AZITHROMYCIN IV 500 MG in SODIUM CHLORIDE 0.9% 250ML 250 ML IVPB SCH (20:36)
[2019-01-07] MEDS: LOSARTAN POTASSIUM 100 MG TAB PO SCH (20:36)
[2019-01-08] MEDS: methylPREDNISolone SODIUM SUC 125 MG/2 ML VIAL IV SCH ×5 (00:08→23:58)
[2019-01-08] MEDS: ALBUTEROL SULFATE 2.5 MG/3 ML VIAL NEB PRN (05:23)
[2019-01-08] MEDS ORDERED: methylPREDNISolone SODIUM SUC 40 MG/ML VIAL IV SCH (06:00)
[2019-01-08] MEDS: PANTOPRAZOLE SODIUM TAB 40 MG PO SCH (06:14)
--- NOTE | 2019-01-08 06:50 | RAD ---
EXAM DESCRIPTION: Chest,2 Views CLINICAL HISTORY:53 years Female, copd Comparison: January 07, 2019 FINDINGS: Minimal subsegmental atelectasis or scarring left mid lung. No focal consolidation. No pleural effusion. No pneumothorax. Cardiac and mediastinal silhouette is unremarkable. No acute osseous abnormality. Soft tissues are unremarkable. IMPRESSION: Minimal subsegmental atelectasis or scarring left mid lung. No focal consolidation. Electronically signed by: Parish Bradshaw MD 01/08/2019 6:48 AM CDT
[2019-01-08] MEDS: INSULIN LISPRO 100 UNITS/ML PEN SUBCU SCH ×7 (08:04→21:01)
[2019-01-08] MEDS: metFORMIN HCL 500 MG TAB PO SCH ×2 (08:09→17:39)
[2019-01-08] MEDS: IPRATROPIUM/ALBUTEROL 3 ML VIAL INH SCH ×4 (08:53→20:20)
[2019-01-08] MEDS: BUDESONIDE NEBS 0.5 MG/2 ML INH NEB SCH ×2 (08:53→20:20)
[2019-01-08] MEDS: ENOXAPARIN SODIUM 40 MG/0.4 ML SYG SUBCU SCH (10:02)
[2019-01-08] MEDS: FUROSEMIDE 40 MG TAB PO SCH (10:02)
[2019-01-08] MEDS: amLODIPine BESYLATE 5 MG TAB PO SCH (10:02)
[2019-01-08] MEDS: MONTELUKAST 10 MG TAB PO SCH (10:02)
[2019-01-08] MEDS: metOLazone 2.5 MG TAB PO SCH (10:02)
[2019-01-08] MEDS: POTASSIUM CHLORIDE 20 MEQ TAB PO SCH (10:02)
[2019-01-08] MEDS ORDERED: SODIUM CHLORIDE 0.9% 500ML 500 ML IVS ONE (11:33)
--- NOTE | 2019-01-08 15:14 | PN ---
DATE: 01/08/19 SUPERVISING PHYSICIAN: Alexander Felder M.D. SUBJECTIVE: The patient is lying in bed. She is on high flow oxygen now. She has not required BiPAP as much as she did yesterday. She has not felt as short of breath as she did yesterday, but she still is very weak and gets short of breath with exertion. She denies constipation, nausea, vomiting or chest pain. OBJECTIVE: VITAL SIGNS: Temperature 97.4, heart rate 80, blood pressure 121/82, respiratory rate 22 to 24, O2 sat 90 to 91%. She has required both high flow oxygen and BiPAP. RESPIRATORY: Diminished breath sounds throughout. They are very distant sounding. She is slightly tachypneic. She can only speak in short phrases due to her dyspnea. CARDIAC: Regular rate and rhythm. GASTROINTESTINAL: Abdomen is soft, nondistended, non-tender. Bowel sounds are positive. NEUROLOGIC: She is awake, alert and oriented times three. LABORATORY: WBCs are 14,800 with hemoglobin 11, hematocrit 34. She does have a left shift on her differential. Blood sugars have run between 171 and 270. Electrolytes show sodium 140, potassium 3.8, chloride 91, carbon dioxide 32, BUN 34, creatinine is elevated at 1.39. AST 48. Sputum culture is pending. Preliminary blood cultures show no growth after 24 hours. Chest x-ray shows minimal subsegmental atelectasis or scarring mid lung. No focal consolidation. All other labs and films have been reviewed via the EMR. ASSESSMENT: 1. Acute exacerbation of chronic obstructive pulmonary disease with developing right sided pneumonia, community acquired, having failed to respond to outpatient treatment measures. 2. Respiratory distress with mild hypoxia on room air in a patient oxygen dependent. 3. Uncontrolled hypertension history, but controlled on current admission. 4. Chronic obstructive sleep apnea. 5. Chronic insomnia. 6. Mild renal insufficiency secondary to prerenal azotemia as well as possible infectious process. Also may be due to some mild dehydration. PLAN: We will continue present supportive care. I am going to give her a small amount of fluids and hopefully we can correct her elevated creatinine. WBCs are most likely elevated due to her steroids and I am slowly titrating those down. Hopefully by tomorrow or Thursday she can be changed to oral prednisone. She will most likely need to have a chronic dose of steroids at that time. I have ordered some lab for in the morning. Will continue to watch her clinically and treat as appropriate. [facility][id number] [facility]
[2019-01-08] MEDS ORDERED: cefTRIAXone SODIUM 1 GM VIAL ONE (19:10)
[2019-01-08] MEDS ORDERED: SODIUM CHLORIDE 0.9% 250ML 250 ML ONE (19:10)
[2019-01-08] MEDS ORDERED: SODIUM CHL 0.9% 50ML MIN-BAG+ 50 ML IVPB ONE (19:10)
[2019-01-08] MEDS ORDERED: AZITHROMYCIN IV 500 MG VIAL IVPB ONE (19:11)
[2019-01-08] MEDS: cefTRIAXone SODIUM 1 GM in SODIUM CHL 0.9% 50ML MIN-BAG+ 50 ML IVPB SCH (20:05)
[2019-01-08] MEDS: AZITHROMYCIN IV 500 MG in SODIUM CHLORIDE 0.9% 250ML 250 ML IVPB SCH (20:19)
[2019-01-08] MEDS: LOSARTAN POTASSIUM 100 MG TAB PO SCH (21:01)
[2019-01-09] MEDS: ALBUTEROL SULFATE 2.5 MG/3 ML VIAL NEB PRN ×2 (00:15→13:01)
[2019-01-09] MEDS: methylPREDNISolone SODIUM SUC 125 MG/2 ML VIAL IV SCH (06:03)
[2019-01-09] MEDS: PANTOPRAZOLE SODIUM TAB 40 MG PO SCH (06:03)
[2019-01-09] MEDS: INSULIN LISPRO 100 UNITS/ML PEN SUBCU SCH ×7 (07:36→21:28)
[2019-01-09] MEDS: IPRATROPIUM/ALBUTEROL 3 ML VIAL INH SCH ×4 (07:45→19:30)
[2019-01-09] MEDS: BUDESONIDE NEBS 0.5 MG/2 ML INH NEB SCH ×2 (07:45→19:30)
[2019-01-09] MEDS: metFORMIN HCL 500 MG TAB PO SCH ×2 (07:45→16:52)
[2019-01-09] MEDS: metOLazone 2.5 MG TAB PO SCH (09:25)
[2019-01-09] MEDS: ENOXAPARIN SODIUM 40 MG/0.4 ML SYG SUBCU SCH (09:26)
[2019-01-09] MEDS: amLODIPine BESYLATE 5 MG TAB PO SCH (09:26)
[2019-01-09] MEDS: FUROSEMIDE 40 MG TAB PO SCH (09:26)
[2019-01-09] MEDS: MONTELUKAST 10 MG TAB PO SCH (09:26)
[2019-01-09] MEDS ORDERED: FUROSEMIDE INJ 40 MG/4 ML VIAL IV ONE (11:00)
[2019-01-09] MEDS: methylPREDNISolone SODIUM SUC 40 MG/ML VIAL IV SCH ×2 (14:10→21:38)
--- NOTE | 2019-01-09 14:14 | PN ---
DATE: 01/09/19 SUPERVISING PHYSICIAN: Alexander Felder M.D. SUBJECTIVE: The patient is sitting up in bed. She has actually been transitioned from BiPAP to high flow oxygen, now she is on 4 liters nasal cannula. She does appear rather tachypneic and short of breath, but she feels like she is improving. Denies chest pain, nausea, vomiting or diarrhea. OBJECTIVE: VITAL SIGNS: She is afebrile, respiratory rate 22 to 24. She was off BiPAP at 1:00 AM today and has been on high flow during the day. Earlier it was 93% on high flow. She recently has been transitioned to 4 liters nasal cannula and her respiratory rate is between 91 and 93. Blood pressure 114/72, heart rate 73. RESPIRATORY: Diminished breath sounds throughout. Diffuse scattered rhonchi. There is no wheezing noted. She is tachypneic. She does have to speak in short phrases due to her shortness of breath. CARDIAC: Regular rate and rhythm. GASTROINTESTINAL: Abdomen is soft, nondistended, non-tender. Bowel sounds are positive. NEUROLOGIC: She is awake, alert and oriented times three. LABORATORY: Sodium 142, potassium 3.6, chloride 96, carbon dioxide 36, BUN 40. Creatinine has improved to 1.29. Magnesium 2.9, calcium 9.2. Preliminary blood cultures show no growth after 48 hours. Sputum culture is pending. All other labs and films have been reviewed via the EMR. ASSESSMENT: 1. Acute exacerbation of chronic obstructive pulmonary disease with developing right sided pneumonia, community acquired, having failed to respond to outpatient treatment measures. 2. Respiratory distress with mild hypoxia on room air in a patient oxygen dependent. 3. Uncontrolled hypertension history, but controlled on current admission. 4. Chronic obstructive sleep apnea. 5. Chronic insomnia. 6. Mild renal insufficiency secondary to prerenal azotemia as well as possible infectious process. Also may be due to some mild dehydration. She was given a small amount of IV fluids and her renal function has improved. PLAN: We will continue present supportive care. She will finish her IV steroids today and will transition to p.o. prednisone tomorrow. I will repeat her lab and check her creatinine in the morning. She has transitioned over to nasal cannula. Will monitor her respiratory status closely. She has seen Dr. Khan, proposal manager, in the past and she will need a followup with him. I also spoke with her at length about pulmonary rehab on discharge and she has quit smoking some time ago. She would probably benefit from pulmonary rehab treatment. We can set that up prior to discharge. Otherwise I have ordered physical therapy for tomorrow. Will continue to monitor closely and follow as needed. #[id number] [facility]
[2019-01-09] MEDS ORDERED: SODIUM CHL 0.9% 50ML MIN-BAG+ 50 ML IVPB ONE (19:42)
[2019-01-09] MEDS ORDERED: SODIUM CHLORIDE 0.9% 250ML 250 ML ONE (19:42)
[2019-01-09] MEDS ORDERED: AZITHROMYCIN IV 500 MG VIAL IVPB ONE (19:43)
[2019-01-09] MEDS ORDERED: cefTRIAXone SODIUM 1 GM VIAL ONE (19:43)
[2019-01-09] MEDS: cefTRIAXone SODIUM 1 GM in SODIUM CHL 0.9% 50ML MIN-BAG+ 50 ML IVPB SCH (20:27)
[2019-01-09] MEDS: IV SET AND CAP CHANGE INJ INJ SCH (20:28)
[2019-01-09] MEDS: AZITHROMYCIN IV 500 MG in SODIUM CHLORIDE 0.9% 250ML 250 ML IVPB SCH (21:23)
[2019-01-09] MEDS: LOSARTAN POTASSIUM 100 MG TAB PO SCH (21:24)
[2019-01-10] MEDS: ALBUTEROL SULFATE 2.5 MG/3 ML VIAL NEB PRN (03:05)
[2019-01-10] MEDS: methylPREDNISolone SODIUM SUC 40 MG/ML VIAL IV SCH (05:45)
[2019-01-10] MEDS: PANTOPRAZOLE SODIUM TAB 40 MG PO SCH (05:46)
[2019-01-10] MEDS: metFORMIN HCL 500 MG TAB PO SCH ×2 (07:57→17:17)
[2019-01-10] MEDS: INSULIN LISPRO 100 UNITS/ML PEN SUBCU SCH ×7 (07:57→20:51)
[2019-01-10] MEDS: BUDESONIDE NEBS 0.5 MG/2 ML INH NEB SCH ×2 (08:39→20:34)
[2019-01-10] MEDS: IPRATROPIUM/ALBUTEROL 3 ML VIAL INH SCH ×4 (08:39→20:34)
[2019-01-10] MEDS: POTASSIUM CHLORIDE 20 MEQ TAB PO SCH (09:43)
[2019-01-10] MEDS: MONTELUKAST 10 MG TAB PO SCH (09:44)
[2019-01-10] MEDS: amLODIPine BESYLATE 5 MG TAB PO SCH (09:44)
[2019-01-10] MEDS: FUROSEMIDE 40 MG TAB PO SCH (09:44)
[2019-01-10] MEDS: metOLazone 2.5 MG TAB PO SCH (09:44)
[2019-01-10] MEDS: ENOXAPARIN SODIUM 40 MG/0.4 ML SYG SUBCU SCH (09:44)
[2019-01-10] MEDS: predniSONE 20 MG TAB PO SCH (09:46)
--- NOTE | 2019-01-10 14:57 | PN ---
SUPERVISING PHYSICIAN: Lukasz Vickers MD DATE: 01/10/19 SUBJECTIVE: The patient continues to still require BiPAP. She is showing some episodes of significant shortness of breath, but showing some slow improvement. She has had no further complaints. OBJECTIVE: VITAL SIGNS: Temperature 97.2. Pulse 76. Blood pressure 127/72. Respirations 22 to 24. O2 saturation 93% on 45% BiPAP. I&Os with negative balance. Weight 117.9 kg. GENERAL: The patient is resting comfortably in bed. She does appear short of breath, but in no acute distress. CHEST: Lung sounds are slightly improved from admission, but continue to be very coarse throughout and diminished towards the bases bilaterally. HEART: Regular rate and rhythm. ABDOMEN: Obese, but soft and nontender. Positive bowel sounds. EXTREMITIES: No edema. NEUROLOGIC: Alert and oriented times three. LABORATORY: White count now 7,900. Hemoglobin and hematocrit stable at 10.2 and 30.6 respectively. Platelet count 291,000. Differential does show a left shift. Chemistries show potassium 3.5, carbon dioxide elevated at 39, BUN 45, anion elevated at 18.5. Blood sugars remain elevated between 206 and 292. Serum osmolality 303. Magnesium 2.1. RADIOLOGY: No repeat chest x-ray today. We will repeat chest x-ray in the morning. ASSESSMENT: 1. Acute exacerbation of chronic obstructive pulmonary disease with developing right sided pneumonia, community acquired, having failed to respond to outpatient treatment measures. 2. Respiratory distress with mild hypoxia on room air in a patient oxygen dependent. 3. Uncontrolled hypertension history, but controlled on current admission. 4. Chronic obstructive sleep apnea. 5. Chronic insomnia. 6. Mild renal insufficiency secondary to prerenal azotemia as well as possible infectious process. Also may be due to some mild dehydration. She was given a small amount of IV fluids and her renal function has improved. PLAN: We will continue to try p.o. steroids today. I have discussed with the respiratory therapist to try to use BiPAP for inline treatments as well as EzPAP. Hopefully we will be able to transition the patient home within the next 24 to 48 hours. She will be a slow transition as she has demonstrated this in the past and even with high dose steroids she continues to show slow improvement. Until then, we will continue to monitor and treat as needed. [facility][id number] [facility]
[2019-01-10] MEDS ORDERED: SODIUM CHL 0.9% 50ML MIN-BAG+ 50 ML IVPB ONE (19:37)
[2019-01-10] MEDS ORDERED: SODIUM CHLORIDE 0.9% 250ML 250 ML ONE (19:37)
[2019-01-10] MEDS ORDERED: cefTRIAXone SODIUM 1 GM VIAL ONE (19:38)
[2019-01-10] MEDS ORDERED: AZITHROMYCIN IV 500 MG VIAL IVPB ONE (19:38)
[2019-01-10] MEDS: LOSARTAN POTASSIUM 100 MG TAB PO SCH (20:05)
[2019-01-10] MEDS: cefTRIAXone SODIUM 1 GM in SODIUM CHL 0.9% 50ML MIN-BAG+ 50 ML IVPB SCH (20:06)
[2019-01-10] MEDS: AZITHROMYCIN IV 500 MG in SODIUM CHLORIDE 0.9% 250ML 250 ML IVPB SCH (20:44)
[2019-01-11] MEDS: ALBUTEROL SULFATE 2.5 MG/3 ML VIAL NEB PRN ×2 (01:39→06:30)
[2019-01-11] MEDS: PANTOPRAZOLE SODIUM TAB 40 MG PO SCH (05:58)
[2019-01-11] MEDS: INSULIN LISPRO 100 UNITS/ML PEN SUBCU SCH ×7 (07:03→20:45)
[2019-01-11] MEDS: metFORMIN HCL 500 MG TAB PO SCH ×2 (07:08→16:45)
--- NOTE | 2019-01-11 07:35 | RAD ---
EXAM DESCRIPTION: Chest,2 Views CLINICAL HISTORY: copd exacerbation COMPARISON: January 08, 2019 FINDINGS: Two-view chest x-ray shows enlargement of the cardiac silhouette without pulmonary vascular congestion. Lungs are normally aerated. Interstitial type infiltrate in the lingula of the left upper lobe is mildly increased from previous exam with mild increased interstitial markings in the left lower lobe slightly improved. Right lung is clear. Costophrenic angles are sharp. Osseous structures are unremarkable IMPRESSION: Increasing interstitial infiltrate in the lingula of the left upper lobe suggesting atelectasis versus pneumonia. Continued follow-up until resolution is recommended. Interval improvement of atelectasis or infiltrate in the left lower lobe seen on previous exam. Electronically signed by: Miguel Coronel MD 01/11/2019 7:33 AM [employer]
[2019-01-11] MEDS: IPRATROPIUM/ALBUTEROL 3 ML VIAL INH SCH ×4 (07:40→20:21)
[2019-01-11] MEDS: BUDESONIDE NEBS 0.5 MG/2 ML INH NEB SCH ×2 (07:40→20:21)
[2019-01-11] MEDS: ENOXAPARIN SODIUM 40 MG/0.4 ML SYG SUBCU SCH (08:32)
[2019-01-11] MEDS: MONTELUKAST 10 MG TAB PO SCH (08:32)
[2019-01-11] MEDS: metOLazone 2.5 MG TAB PO SCH (08:32)
[2019-01-11] MEDS: predniSONE 20 MG TAB PO SCH (08:33)
[2019-01-11] MEDS: amLODIPine BESYLATE 5 MG TAB PO SCH (08:33)
[2019-01-11] MEDS: FUROSEMIDE 40 MG TAB PO SCH (08:33)
[2019-01-11] MEDS ORDERED: FLUCONAZOLE 150 MG TAB PO ONE (12:36)
[2019-01-11] MEDS: NYSTATIN SUSPENSION 500,000/5 ML UD MT SCH ×3 (13:00→20:13)
[2019-01-11] MEDS: levoFLOXacin 750MG IV 750 MG in PREMIX BAG 1 BAG IVPB SCH (20:09)
[2019-01-11] MEDS: LOSARTAN POTASSIUM 100 MG TAB PO SCH (20:13)
[2019-01-12] MEDS: ALBUTEROL SULFATE 2.5 MG/3 ML VIAL NEB PRN (03:26)
[2019-01-12] MEDS: PANTOPRAZOLE SODIUM TAB 40 MG PO SCH (06:04)
[2019-01-12] MEDS: INSULIN LISPRO 100 UNITS/ML PEN SUBCU SCH ×7 (07:11→20:46)
[2019-01-12] MEDS: metOLazone 2.5 MG TAB PO SCH (08:03)
[2019-01-12] MEDS: metFORMIN HCL 500 MG TAB PO SCH ×2 (08:03→16:56)
[2019-01-12] MEDS: NYSTATIN SUSPENSION 500,000/5 ML UD MT SCH ×4 (08:04→20:46)
[2019-01-12] MEDS: predniSONE 20 MG TAB PO SCH (08:04)
[2019-01-12] MEDS: POTASSIUM CHLORIDE 20 MEQ TAB PO SCH (08:04)
[2019-01-12] MEDS: amLODIPine BESYLATE 5 MG TAB PO SCH (08:04)
[2019-01-12] MEDS: ENOXAPARIN SODIUM 40 MG/0.4 ML SYG SUBCU SCH (08:07)
[2019-01-12] MEDS: MONTELUKAST 10 MG TAB PO SCH (08:08)
[2019-01-12] MEDS: FUROSEMIDE 40 MG TAB PO SCH (08:08)
--- NOTE | 2019-01-12 08:15 | PN ---
SUPERVISING PHYSICIAN: Lukasz Vickers MD DATE: 01/11/19 SUBJECTIVE: The patient continues to improve but slowly. She has shown some good improvement once we started in-line treatments and encouraged her to wear BiPAP for longer periods throughout the day instead of just at night. She has been afebrile. She has had some issues with some thrush, which we will start treatment for that. OBJECTIVE: VITAL SIGNS: She remains afebrile. Temperature 97.7. Pulse 70. Blood pressure 117/71. Respirations 18, oxygen saturation 95% on high-flow nasal cannula at 4 liters with intermittent BiPAP at 45% FIO2. I&Os with negative balance of 2570. Weight 117.7 kg. GENERAL: The patient is sitting in bed resting comfortably. She appears to be in no acute distress. HEENT: Oropharynx showing some mild erythema with some obvious white areas on the posterior tongue resembling thrush. NECK: Supple, non-tender. CHEST: Lung sounds still coarse but improved from previous day with better aeration compared to the last 24 hours. HEART: Regular rate and rhythm. ABDOMEN: Obese, but soft and nontender. Positive bowel sounds. EXTREMITIES: No edema. NEUROLOGIC: Alert and oriented times three. LABORATORY: CBC has normalized. BNP today continues to show elevated carbon dioxide levels at 44 which is actually higher than admission but she has been on high-flow oxygen. BUN 42, creatinine 1.32, blood sugars are a little better controlled now between 128 and 239. Calcium 9.6, potassium 3.3. MICROBIOLOGY: Sputum culture final shows abundant WBCs, a few yeast, no bacteria seen. Throat culture showed beta strep present but not group A. Final sputum culture showed a Citrobacter amalonaticus which was resistant to amoxicillin, ampicillin, cefazolin, cefroxadine but since it is a Cipro, Levaquin, tetracycline and Bactrim. Blood cultures remained negative at 24 hours. RADIOLOGY: Repeat chest x-ray today per radiology interpretation showed increase in interstitial infiltrate in the left lingula suggesting atelectasis versus pneumonia. ASSESSMENT: 1. Sputum culture showed Citrobacter amalonaticus sensitive to fluoroquinolones. Acute exacerbation of right-sided pneumonia secondary to Citrobacter amalonaticus which was showing resistant to cephalosporins requiring transition to Levaquin. 2. Respiratory distress with mild hypoxia on room air requiring BiPAP showing some clinical improvement. 3. Thrush secondary to antibiotic and steroid coverage requiring initiation of Nystatin. 4. Uncontrolled hypertension history, but controlled on current admission. 5. Chronic obstructive sleep apnea. 6. Chronic insomnia. 7. Mild renal insufficiency improving with fluids. PLAN: She is on steroids, we will continue those oral but given the final culture reports we will start her on Levaquin given that it is sensitive to Levaquin but resistant to fluoroquinolones. She remains on EzPAP, aggressive pulmonary hygiene and BiPAP as needed. Given the delay in culture results and that we just now transitioned over to Levaquin, she has not advanced in care as expected and more likely due to the resistance of the organism that grew causing pneumonia. Again, we will start her on Levaquin 750 mg every 24 hours. I anticipate at least 24 to 48 hours parenteral antibiotics until we can transition her to oral medications. Until then, we will continue to monitor and treat as needed. #[id number] [facility]
[2019-01-12] MEDS: IPRATROPIUM/ALBUTEROL 3 ML VIAL INH SCH ×4 (08:17→20:10)
[2019-01-12] MEDS: BUDESONIDE NEBS 0.5 MG/2 ML INH NEB SCH ×2 (08:17→20:10)
--- NOTE | 2019-01-12 14:43 | PN ---
SUPERVISING PHYSICIAN: Lukasz Vickers MD DATE: 01/12/19 SUBJECTIVE: The patient states she feels a little bit better than she did as far as her shortness of breath. She is still having a significant cough. OBJECTIVE: VITAL SIGNS: Blood pressure 120/75. Heart rate 64. Respiratory rate 18. Temperature 97.0. Oxygen saturation 97%. GENERAL: Ms. Scherer is a 53-year-old female who is in no active distress, but still requiring 4 liters of oxygen to maintain O2 saturation. NEUROLOGIC: Alert and oriented. LUNGS: No wheezing, but she does have some scattered rhonchi. CARDIOVASCULAR: Regular rate and rhythm. Normal S1, S2. ABDOMEN: Obese, soft. Positive bowel sounds. EXTREMITIES: Lower extremities with no significant edema. ASSESSMENT: 1. Right sided pneumonia which has grown out Citrobacter amalonaticus, sensitive to fluoroquinolones and she was placed on Levaquin yesterday. 2. Respiratory distress with hypoxia requiring intermittent BiPAP. 3. Thrush secondary to antibiotic therapy. 4. Hypertension, improved. 5. Obstructive sleep apnea. 6. Chronic insomnia. 7. Mild renal insufficiency, improving. PLAN: At this time, the patient seems to be stepwise improving clinically. We will need to reduce her oxygen as tolerated and she needs to ambulate in the hallway. Apparently she refused this morning. I explained to her that she would not significantly improve until she mobilized. I will continue to monitor her status and reduce steroids to 30 mg starting tomorrow. #[id number] [facility]
[2019-01-12] MEDS: levoFLOXacin 750MG IV 750 MG in PREMIX BAG 1 BAG IVPB SCH (20:45)
[2019-01-12] MEDS: IV SET AND CAP CHANGE INJ INJ SCH (20:46)
[2019-01-12] MEDS: LOSARTAN POTASSIUM 100 MG TAB PO SCH (20:46)
[2019-01-13] MEDS: PANTOPRAZOLE SODIUM TAB 40 MG PO SCH (05:55)
[2019-01-13] MEDS: ALBUTEROL SULFATE 2.5 MG/3 ML VIAL NEB PRN (06:36)
[2019-01-13] MEDS: INSULIN LISPRO 100 UNITS/ML PEN SUBCU SCH ×7 (07:30→21:00)
[2019-01-13] MEDS: metFORMIN HCL 500 MG TAB PO SCH ×2 (07:32→16:31)
[2019-01-13] MEDS: IPRATROPIUM/ALBUTEROL 3 ML VIAL INH SCH ×4 (08:15→19:52)
[2019-01-13] MEDS: BUDESONIDE NEBS 0.5 MG/2 ML INH NEB SCH ×2 (08:15→19:53)
[2019-01-13] MEDS: predniSONE 10 MG TAB PO SCH (09:24)
[2019-01-13] MEDS: ENOXAPARIN SODIUM 40 MG/0.4 ML SYG SUBCU SCH (09:24)
[2019-01-13] MEDS: NYSTATIN SUSPENSION 500,000/5 ML UD MT SCH ×4 (09:24→20:35)
[2019-01-13] MEDS: MONTELUKAST 10 MG TAB PO SCH (09:24)
[2019-01-13] MEDS: metOLazone 2.5 MG TAB PO SCH (09:24)
[2019-01-13] MEDS: amLODIPine BESYLATE 5 MG TAB PO SCH (09:24)
[2019-01-13] MEDS: FUROSEMIDE 40 MG TAB PO SCH (09:44)
[2019-01-13] MEDS ORDERED: POTASSIUM CHLORIDE 20 MEQ TAB PO ONE (10:20)
--- NOTE | 2019-01-13 10:24 | RAD ---
EXAM DESCRIPTION: XR CHEST 1 VIEW CLINICAL HISTORY: 53 years Female, Pneumonia COMPARISON: 01/11/2019 Findings: Cardiac silhouette and pulmonary vasculature are within normal limits. No pneumothorax. Possible small left pleural effusion. Increased left basilar consolidative airspace disease. Otherwise no significant interval change. IMPRESSION: Increasing consolidative left basilar airspace disease, atelectasis or pneumonia. Recommend repeat chest radiographs in six weeks. Electronically signed by: Srinivas Thompson MD 01/13/2019 7:59 AM [employer]
--- NOTE | 2019-01-13 14:21 | PN ---
SUPERVISING PHYSICIAN: Lukasz Vickers MD DATE: 01/13/19 SUBJECTIVE: The patient states she feels a little bit better today. She was able to walk in the [place]. She still uses a BiPAP, but that his chronic for her as well. She is coughing not a whole lot up, but states it is a nagging cough. OBJECTIVE: VITAL SIGNS: Blood pressure 120/68. Heart rate 84. Respiratory rate 15. Temperature 97.0. Oxygen saturation 92%. GENERAL: Ms. Scherer is a 53-year-old female who is in no active distress currently. NEUROLOGIC: Alert and oriented. LUNGS: She has bilateral rhonchi, but it clears with cough. CARDIOVASCULAR: Regular rate and rhythm. Normal S1, S2. ABDOMEN: Obese, soft. Positive bowel sounds. EXTREMITIES: Lower extremities with no edema. LABORATORY: White count 8.1, hemoglobin 11.8, hematocrit 35.4, platelet count 264. Chemistry shows a sodium 139, potassium 3.3, chloride 83, CO2 39, BUN 41, creatinine 1.33, glucose 107, calcium 9.5, magnesium 1.9. Her chest x-ray was done and shows the left lower lobe airspace disease which is either atelectasis or pneumonia. ASSESSMENT: 1. Right sided pneumonia which has grown out Citrobacter amalonaticus, sensitive to fluoroquinolones which she was placed on 2 days ago. 2. Acute on chronic respiratory distress requiring intermittent BiPAP. 3. Thrush secondary to antibiotic therapy. 4. Hypertension. 5. Obstructive sleep apnea, requiring BiPAP. 6. Chronic insomnia. 7. Mild renal insufficiency. PLAN: At this time, we will continue current antibiotic therapy. I do want to give another dose of IV antibiotics and she potentially will be able to go home tomorrow depending on how she looks. White count is normal. She has been afebrile. [facility][id number] [facility]
[2019-01-13] MEDS: levoFLOXacin 750MG IV 750 MG in PREMIX BAG 1 BAG IVPB SCH (20:34)
[2019-01-13] MEDS: LOSARTAN POTASSIUM 100 MG TAB PO SCH (20:34)
[2019-01-14] MEDS: ALBUTEROL SULFATE 2.5 MG/3 ML VIAL NEB PRN (04:03)
[2019-01-14] MEDS: PANTOPRAZOLE SODIUM TAB 40 MG PO SCH (06:08)
[2019-01-14 06:26] VITALS: BP 105/64; TEMP 97.1
[2019-01-14] MEDS: INSULIN LISPRO 100 UNITS/ML PEN SUBCU SCH ×2 (07:14)
[2019-01-14] MEDS: metFORMIN HCL 500 MG TAB PO SCH (07:39)
[2019-01-14] MEDS: FUROSEMIDE 40 MG TAB PO SCH (08:59)
[2019-01-14] MEDS: metOLazone 2.5 MG TAB PO SCH (08:59)
[2019-01-14] MEDS: predniSONE 10 MG TAB PO SCH (08:59)
[2019-01-14] MEDS: MONTELUKAST 10 MG TAB PO SCH (08:59)
[2019-01-14] MEDS: ENOXAPARIN SODIUM 40 MG/0.4 ML SYG SUBCU SCH (09:00)
[2019-01-14] MEDS: POTASSIUM CHLORIDE 20 MEQ TAB PO SCH (09:00)
[2019-01-14] MEDS: amLODIPine BESYLATE 5 MG TAB PO SCH (09:00)
[2019-01-14] MEDS: BUDESONIDE NEBS 0.5 MG/2 ML INH NEB SCH (09:25)
[2019-01-14] MEDS: IPRATROPIUM/ALBUTEROL 3 ML VIAL INH SCH (09:25)
[2019-01-14] MEDS: NYSTATIN SUSPENSION 500,000/5 ML UD MT SCH (09:28)
--- NOTE | 2019-01-14 10:20 | DS ---
SUPERVISING PHYSICIAN: Lukasz Vickers MD ADMISSION DIAGNOSIS: 1. Acute exacerbation of chronic obstructive pulmonary disease with developing right sided pneumonia, community acquired, failing outpatient therapy. 2. Respiratory distress with mild hypoxia on room air in a patient who is oxygen dependent. 3. History of hypertension. 4. Obstructive sleep apnea. 5. Insomnia. DISCHARGE DIAGNOSIS: 1. Right sided pneumonia which has grown out Citrobacter amalonaticus, sensitive to fluoroquinolones. 2. Chronic obstructive pulmonary disease exacerbation. 3. Thrush secondary to antibiotic therapy. 4. Hypertension. 5. Obstructive sleep apnea requiring BiPAP. 6. Insomnia. 7. Renal insufficiency. HOSPITAL COURSE: This is a 53-year-old female who has a history of chronic obstructive pulmonary disease and obstructive sleep apnea. She was seen at her primary care provider's office with shortness of breath. She was in respiratory distress and was noted to be hypoxic in the office. She was given breathing treatment as well as IV steroids in the office, but failed to have any improvement. Therefore, she was referred for direct admission. Upon admission, her O2 saturations were in the mid-80s. Therefore, she was placed on BiPAP. She was noted to have a right sided pneumonia and was placed on antibiotic therapy. Sputum culture resulted in growth of Citrobacter and her antibiotics were changed accordingly. Once that was done, her white count began to decline. Additionally, she was also on IV steroids which were tapered and then she was placed on p.o. steroids as well. She stepwise improved. At the beginning of the admission, she required intermittent BiPAP, but towards the end of the admission, she only required the BiPAP at night as she normally uses. She was able to walk in the [place] with physical therapy without difficulty. She uses nasal cannula O2 at home on a normal basis. On day of discharge, she is at her baseline. I have written for a tapering dose of steroids as well as 10 more days of Levaquin to be given. Also, she was given a prescription for Nystatin due to the thrush that she developed while she was here. She is to followup with Huey Cazares in the next week or so. Activities as tolerated, but she can return to work next Thursday. All other medications that she takes at home have been resumed. [facility][id number] [facility]
[2019-01-14 12:59] VITALS: O2SAT 98
== END 2019-01-14 09:45 | disposition home or self-care (01) | DRG 177 ==
LOC: MS 17:58
PROVIDERS: ADMIT Nurse Practitioner Family; ATTEND Nurse Practitioner
DX: J15.6 Pneumonia due to other Gram-negative bacteria (principal); J96.01 Acute respiratory failure with hypoxia; J44.0 Chronic obstructive pulmonary disease with (acute) lower respiratory infection; J44.1 Chronic obstructive pulmonary disease with (acute) exacerbation; B37.0 Candidal stomatitis; Z68.42 Body mass index [BMI] 45.0-49.9, adult; J96.02 Acute respiratory failure with hypercapnia; R09.02 Hypoxemia; Z99.81 Dependence on supplemental oxygen; I10 Essential (primary) hypertension; G47.33 Obstructive sleep apnea (adult) (pediatric); G47.00 Insomnia, unspecified; N28.9 Disorder of kidney and ureter, unspecified; Z88.5 Allergy status to narcotic agent; Z87.891 Personal history of nicotine dependence; E66.9 Obesity, unspecified

== ENCOUNTER → 2019-01-06 | Outpatient (CLI) | payer SELFPAY ==
--- NOTE | 2019-01-06 17:08 | RAD ---
EXAM DESCRIPTION: Chest,2 Views CLINICAL HISTORY: 53 years Female, COPD W EXACERBATION COMPARISON: 26 November 2017 TECHNIQUE: PA/lateral FINDINGS: A background of chronic interstitial lung disease is observed. Atelectatic type infiltrate is observed in the left lateral chest. There is been an interval improvement in aeration the chest when comparison is made to the previous exam. The heart is within range of normal. IMPRESSION: An interval improvement in aeration the chest is observed. Persistent left-sided atelectatic type infiltrate is noted. Electronically signed by: Jens Wright MD 01/06/2019 5:07 PM CDT
== END ==
LOC: LAB.O 14:11
PROVIDERS: ATTEND Nurse Practitioner Family
DX: J44.1 Chronic obstructive pulmonary disease with (acute) exacerbation (principal); R91.8 Other nonspecific abnormal finding of lung field

== ENCOUNTER → 2019-12-13 | Outpatient (CLI) | payer BC ==
--- NOTE | 2019-12-13 16:32 | RAD ---
EXAM DESCRIPTION: Chest,2 Views CLINICAL HISTORY: CHRONIC OBSTRUCTIVE PULMONARY DISEASE WITH ACUTE EXACERBATION COMPARISON: January 13, 2019 FINDINGS: Two-view chest x-ray shows enlargement of the cardiac silhouette. Increased interstitial markings throughout the lungs are seen more prominent in the perihilar region increased from previous. The lungs are normally aerated . Costophrenic angles are sharp. Mild disc degenerative changes of the spine. IMPRESSION: Cardiomegaly with mild increased interstitial markings throughout the lungs suggest congestive heart failure with pulmonary edema. Mild pneumonia or pneumonitis can have a similar appearance. Correlate with clinical signs and symptoms. Electronically signed by: Miguel Coronel MD 12/13/2019 4:30 PM CDT
== END ==
LOC: LAB.O 10:00
PROVIDERS: ATTEND Nurse Practitioner Family
DX: J44.1 Chronic obstructive pulmonary disease with (acute) exacerbation (principal); R91.8 Other nonspecific abnormal finding of lung field; I51.7 Cardiomegaly